=== PATIENT | female | born 1960 | race African-American/Black ===

== ENCOUNTER 2016-09-26 12:03 | Inpatient (IN) | payer OTHER ==
[~2016-09-26] VITALS: Ht 170.2 cm; Wt 63.1 kg
[2016-09-26] VITALS (9 sets, daily range): BP systolic 130–198; BP diastolic 81–135; PULSE 81–102; RESP 16–18; TEMP 97.2–98.8; O2SAT 96–100
[~2016-09-26 12:03] MED LIST: LISI-366 PO
[2016-09-26] MEDS ORDERED: SODIUM CHLORIDE 0.9% FLUSH 5 ML FLUSH IVF PRN ×2 (12:15→21:45)
[2016-09-26] MEDS ORDERED: SODIUM CHLOR 0.9% 1000 ML INJ 1,000 ML IV SCH (12:15)
[2016-09-26] MEDS ORDERED: LISINOPRIL 20 MG TAB PO ONE (12:15)
[2016-09-26 12:44] LABS: AUTOMATED NEUTROPHIL # 3.1 TH/MM3 (1.8-7.7); BASOPHIL % 0.6 % (0.0-2.0); EOSINOPHIL % 0.7 % (0.0-4.0); HEMATOCRIT 47.2 % (35.0-46.0); HEMO FLAGS DIFF FINAL; LYMPH % 29.4 % (9.0-44.0); LYMPHOCYTE # 1.5 TH/MM3 (1.0-4.8); MEAN CELL VOLUME 85.3 FL (80.0-100.0); MEAN CORPUSCULAR HGB CONC 31.7 % (32.0-36.0); MONO % 8.8 % (0.0-8.0); NEUT % 60.5 % (16.0-70.0); PLATELET COUNT 202 TH/MM3 (150-450); RED BLOOD COUNT 5.54 MIL/MM3 (4.00-5.30); RED CELL DISTRIBUTION WIDTH 14.9 % (11.6-17.2); WHITE BLOOD COUNT 5.2 TH/MM3 (4.0-11.0)
[2016-09-26 12:52] LABS: APTT (PATIENT) 30.8 SEC (24.3-30.1)
[2016-09-26 13:01] LABS: AST (GOT) 39 U/L (15-37); BICARBONATE 30.4 MEQ/L (21.0-32.0); BLOOD UREA NITROGEN 13 MG/DL (7-18); CHLORIDE 104 MEQ/L (98-107); GLOMERULAR FILTRATION RATE 66 ML/MIN (>89); POTASSIUM 4.4 MEQ/L (3.5-5.1); SODIUM (NA) 141 MEQ/L (136-145)
[2016-09-26 13:02] LABS: ANION GAP 7 MEQ/L (5-15)
[2016-09-26 13:12] LABS: ALKALINE PHOSPHATASE 87 U/L (45-117); ALT (GPT) 49 U/L (10-53); TOTAL BILIRUBIN ADULT 0.3 MG/DL (0.2-1.0)
[2016-09-26 13:13] LABS: CREATINE KINASE 62 U/L (26-192)
--- NOTE | 2016-09-26 13:21 | RADRPT ---
EXAM DATE/TIME: 09/26/2016 12:39 [facility] COMPARISON: No previous studies available for comparison. INDICATIONS : Altered mental status. Weakness. RADIATION DOSE: 56.35 CTDIvol (mGy) MEDICAL HISTORY : Hypertension. SURGICAL HISTORY : None. ENCOUNTER: Initial ACUITY: 1 day PAIN SCALE: 0/10 LOCATION: cranial TECHNIQUE: Multiple contiguous axial images were obtained of the head. Using automated exposure control and adj ustment of the mA and/or kV according to patient size, radiation dose was kept as low as reasonably a chievable to obtain optimal diagnostic quality images. FINDINGS: Moderate periventricular white matter changes are noted. There is no parenchymal hemorrhage, acute i nfarction, or mass lesion. There are no extraaxial fluid collections appreciated. Abnormal white matter extends into the brain stem. CONCLUSION: Marked periventricular white matter changes extending into the brain stem, negative for parenchymal h emorrhage or mass lesion. MRI may be helpful. Willie Alvarez MD FACR on September 26, 2016 at 13:08 Board Certified Radiologist. This report was verified electronically.
--- NOTE | 2016-09-26 13:29 | RADRPT ---
EXAM DATE/TIME: 09/26/2016 13:14 [facility] COMPARISON: CHEST SINGLE AP, July 03, 2010, 10:48. INDICATIONS : Short of breath. MEDICAL HISTORY : None. SURGICAL HISTORY : Hysterectomy. ENCOUNTER: Initial ACUITY: 1 week PAIN SCORE: 7/10 LOCATION: Bilateral chest FINDINGS: A single view of the chest demonstrates the lungs to be symmetrically aerated without evidence of mas s, infiltrate or effusion. The cardiomediastinal contours are unremarkable. Osseous structures are intact. Nipple shadow is present left base. CONCLUSION: No acute disease. Willie Alvarez MD FACR on September 26, 2016 at 13:27 Board Certified Radiologist. This report was verified electronically.
[2016-09-26 14:30] LABS: BLOOD, URINE NEG (NEG); GLUCOSE,URINE TRACE mg/dL (NEG); HYALINE CAST, URINE 2 /lpf (RARE); KETONE, URINE NEG (NEG); NITRITE,URINE NEG (NEG); PH, URINE 7.5 (5.0-8.5); RENAL EPITHELIAL CELLS <1 /hpf; TRANSITIONAL EPI CELLS, URINE 1 /hpf; URINE COLOR YELLOW (YELLW/STRAW)
[2016-09-26 14:36] LABS: COMMENT (UR) CATH-CULT NOT IND; CULTURE IF INDICATED CATH CULTURE NOT IND
[2016-09-26] MEDS ORDERED: hydrALAZINE HCL 20 MG/ML VIAL IV PUSH ONE (15:00)
[2016-09-26] MEDS ORDERED: LORazepam 2 MG/ML VIAL IV PUSH ONE (15:30)
[2016-09-26] MEDS ORDERED: GADODIAMIDE PF 287 MG/ML 5 ML VIAL (for RAD MRI) IV ONE (17:13)
--- NOTE | 2016-09-26 17:26 | RADRPT ---
EXAM DATE/TIME: 09/26/2016 16:07 [facility] COMPARISON: CT BRAIN W/O CONTRAST, September 26, 2016, 12:39. INDICATIONS : Syncope. Left sided weakness for two months. CONTRAST: 14 cc Omniscan (gadodiamide) IV MEDICAL HISTORY : Hypertension. SURGICAL HISTORY : Hysterectomy. Breast biopsy. ENCOUNTER: Initial ACUITY: 2 months PAIN SCORE: 0/10 LOCATION: Head. TECHNIQUE: Multiplanar, multisequence MRI of the brain was performed both prior to and following the administrat ion of paramagnetic contrast. FINDINGS: Extensive abnormal T2 hyperintensity is identified throughout the brainstem, cerebral peduncles, basa l ganglia and cerebral white matter. The cerebral white matter hyperintensity is confluent and extend s from the ventricular surfaces to the subcortical U fibers. A small focus of restricted diffusion is identified in the right internal capsule and bianchi radiata. A single small focus of magnetic susceptibility is identified in the left midbrain. This is character istic of hemosiderin. There is no evidence of acute hemorrhage. A well-circumscribed extra-axial mass with heterogeneous enhancement is identified in the pre-pontine cistern on the right. It extends from the level the clinoid inferiorly to the mid clivus. It measure s 2.2 x 1.4 x 2.4 cm in size. The mass covers Meckel's cave. The trigeminal ganglion appears unremark able. The fifth cranial nerve originating from the brainstem however cannot be identified. The mass i s causing moderate effacement of the hiral. The lateral ventricles are mildly to moderately distended. CSF spaces are otherwise unremarkable. CONCLUSION: Extensive T2 hyperintensity throughout the brainstem, basal ganglia and cerebral white matter charact eristic of severe chronic ischemic white matter disease. Small focus of restricted diffusion in the right internal capsule and bianchi radiata characteristic o f a small evolving infarct. 2.4 cm extra-axial mass causing moderate effacement of the hiral characteristic of a meningioma or stagecraft teacher nial nerve schwannoma. Small focal hemosiderin deposit in the left midbrain. No evidence of acute hemorrhage, intra-axial mass or significant edema. Ra Thurman MD on September 26, 2016 at 17:10 Board Certified Radiologist. This report was verified electronically.
[2016-09-26] MEDS ORDERED: ASPIRIN 81 MG CHEW TAB CHEW ONE (18:00)
[2016-09-26] MEDS ORDERED: BISACODYL 10 MG SUPP PR PRN (18:30)
[2016-09-26] MEDS ORDERED: ONDANSETRON HCL 4 MG/2 ML VIAL IVP PRN (18:30)
[2016-09-26] MEDS ORDERED: ACETAMINOPHEN 325 MG TAB PO PRN (18:30)
[2016-09-26] MEDS ORDERED: NALOXONE HCL 0.4 MG/ML AMP IV PRN (18:30)
[2016-09-26] MEDS ORDERED: SODIUM CHLORIDE 0.9% FLUSH 5 ML FLUSH FLUSH PRN (18:30)
[2016-09-26] MEDS: SODIUM CHLOR 0.9% 1000 ML INJ 1,000 ML IV SCH (19:14)
--- NOTE | 2016-09-26 20:18 | PD ---
HPI Chief Complaint: Altered Mental Status Time Seen by Provider: 12:06 Travel History International Travel<30 days: No Contact w/Intl Traveler<30days: No Traveled to known affect area: No History of Present Illness HPI Patient is a 56-year-old female who comes in due to altered mental status. Per family, she has a history of psychiatric illness. Recently her cousin convinced her to go back to [place] and she has been receiving Risperdal injections. Her roommate states that for the past few days she has not been getting out of bed. Family states she has been defecating and urinating in the bed. She is speaking, answers questions, but provides very little history. She is currently denying any symptoms, other than headache. [facility] Past Medical History Hypertension: Yes Tetanus Vaccination: Unknown Influenza Vaccination: No ?: Not Past Surgical History Gynecologic Surgery: Yes (BREAST BIOPSY) Hysterectomy: Yes Social History Alcohol Use: Yes (OCCASIONALLY) Tobacco Use: No Substance Use: No Allergies-Medications (Allergen,Severity, Reaction): Coded Allergies: No Known Allergies (Verified , 11/07/14) Reported Meds & Prescriptions Reported Meds & Active Scripts Active No Active Prescriptions or Reported Medications Review of Systems ROS Limitations: Altered Mental Status HENT: Positive: Headaches Cardiovascular: No: Chest Pain or Discomfort Respiratory: No: Shortness of Breath Gastrointestinal: No: Nausea, Vomiting Skin: No Change in Pigmentation Physical Exam Narrative GENERAL: Awake and alert, in no acute distress. SKIN: Warm and dry. HEAD: Atraumatic. Normocephalic. EYES: Pupils equal and round. No scleral icterus. Extraocular movements intact. ENT: Mucous membranes pink and moist. NECK: Trachea midline. No JVD. CARDIOVASCULAR: Regular rate and rhythm. No murmur appreciated. RESPIRATORY: No accessory muscle use. Clear to auscultation. Breath sounds equal bilaterally. GASTROINTESTINAL: Abdomen soft, non-tender, nondistended. MUSCULOSKELETAL: No obvious deformities. No clubbing. No cyanosis. No edema. NEUROLOGICAL: Awake and alert. No obvious cranial nerve deficits. Motor grossly within normal limits. Normal speech. PSYCHIATRIC: Appropriate mood and affect; insight and judgment normal. Data Data Last Documented VS Vital Signs Date Time Temp Pulse Resp B/P Pulse Ox O2 Delivery O2 Flow Rate FiO2 09/26/16 18:33 102 16 130/97 96 Room Air 09/26/16 12:16 98.8 Orders Electrocardiogram (09/26/16 12:15) Complete Blood Count With Diff (09/26/16 12:15) Comprehensive Metabolic Panel (09/26/16 12:15) Creatine Kinase (Cpk) (09/26/16 12:15) Prothrombin Time / Inr (Pt) (09/26/16 12:15) Act Partial Throm Time (Ptt) (09/26/16 12:15) Troponin I (09/26/16 12:15) Thyroid Stimulating Hormone (09/26/16 12:15) Lactic Acid Sepsis Protocol (09/26/16 12:15) Urinalysis - C+S If Indicated (09/26/16 12:15) Ua Includes Microscopic (09/26/16 12:15) Ct Brain W/O Iv Contrast(Rout) (09/26/16 12:15) Blood Glucose (09/26/16 12:15) Ecg Monitoring (09/26/16 12:15) Iv Access Insert/Monitor (09/26/16 12:15) Oximetry (09/26/16 12:15) Sodium Chloride 0.9% Flush (Ns Flush) (09/26/16 12:15) Sodium Chlor 0.9% 1000 Ml Inj (Ns 1000 M (09/26/16 12:15) Drug Screen, Random Urine (09/26/16 12:15) Lisinopril (Prinivil) (09/26/16 12:15) Chest, Single Ap (09/26/16 ) Mri Brain W&W/O Contrast (09/26/16 ) Hydralazine Inj (Apresoline Inj) (09/26/16 15:00) Lorazepam Inj (Ativan Inj) (09/26/16 15:30) Gadodiamide Pf Inj (Omniscan Pf Inj) (09/26/16 17:13) Aspirin Chew (Aspirin Chew) (09/26/16 18:00) Admit To Inpatient (09/26/16 ) Code Status (09/26/16 18:26) Vital Signs (Adult) Q4H (09/26/16 18:26) Activity Oob Ad Anabell (09/26/16 18:26) Insurance Account Representative / Telemetry .CONTINUOUS (09/26/16 18:26) Intake + Output SHUN.QSHIFT (09/26/16 18:26) ^ Notify Dr: Other (09/26/16 18:26) Diet Npo (09/26/16 Dinner) Sodium Chlor 0.9% 1000 Ml Inj (Ns 1000 M (09/26/16 18:26) Sodium Chloride 0.9% Flush (Ns Flush) (09/26/16 18:30) Sodium Chloride 0.9% Flush (Ns Flush) (09/26/16 21:00) Acetaminophen (Tylenol) (09/26/16 18:30) Ondansetron Inj (Zofran Inj) (09/26/16 18:30) Bisacodyl Supp (Dulcolax Supp) (09/26/16 18:30) Docusate Sodium (Colace) (09/26/16 20:00) Basic Metabolic Panel (Bmp) (09/27/16 06:00) Complete Blood Count With Diff (09/27/16 06:00) Creatine Kinase (Cpk) (09/26/16 18:26) Creatine Kinase (Cpk) (09/27/16 00:26) Troponin I (09/26/16 18:26) Troponin I (09/27/16 00:26) Prothrombin Time / Inr (Pt) (09/27/16 06:00) Hepatic Functional Panel (09/27/16 06:00) Pt Request For Service (09/26/16 18:26) Ot Request For Service (09/26/16 18:26) St Request For Service (09/26/16 18:26) Case Management Consult (09/26/16 18:26) Enoxaparin Inj (Lovenox Inj) (09/26/16 20:00) Naloxone Inj (Narcan Inj) (09/26/16 18:30) Inpatient Certification (09/26/16 ) Admit Order (Ed Use Only) (09/26/16 19:02) Labs Laboratory Tests Test 09/26/16 09/26/16 12:32 14:10 White Blood Count 5.2 TH/MM3 Red Blood Count 5.54 MIL/MM3 Hemoglobin 15.0 GM/DL Hematocrit 47.2 % Mean Corpuscular Volume 85.3 FL Mean Corpuscular Hemoglobin 27.0 PG Mean Corpuscular Hemoglobin 31.7 % Concent Red Cell Distribution Width 14.9 % Platelet Count 202 TH/MM3 Mean Platelet Volume 9.4 FL Neutrophils (%) (Auto) 60.5 % Lymphocytes (%) (Auto) 29.4 % Monocytes (%) (Auto) 8.8 % Eosinophils (%) (Auto) 0.7 % Basophils (%) (Auto) 0.6 % Neutrophils # (Auto) 3.1 TH/MM3 Lymphocytes # (Auto) 1.5 TH/MM3 Monocytes # (Auto) 0.5 TH/MM3 Eosinophils # (Auto) 0.0 TH/MM3 Basophils # (Auto) 0.0 TH/MM3 CBC Comment DIFF FINAL Differential Comment Prothrombin Time 11.0 SEC Prothromb Time International 1.0 RATIO Ratio Activated Partial 30.8 SEC Thromboplast Time Sodium Level 141 MEQ/L Potassium Level 4.4 MEQ/L Chloride Level 104 MEQ/L Carbon Dioxide Level 30.4 MEQ/L Anion Gap 7 MEQ/L Blood Urea Nitrogen 13 MG/DL Creatinine 1.04 MG/DL Estimat Glomerular Filtration 66 ML/MIN Rate Random Glucose 100 MG/DL Lactic Acid Level 1.0 mmol/L Calcium Level 9.1 MG/DL Total Bilirubin 0.3 MG/DL Aspartate Amino Transf 39 U/L (AST/SGOT) Alanine Aminotransferase 49 U/L (ALT/SGPT) Alkaline Phosphatase 87 U/L Total Creatine Kinase 62 U/L Troponin I LESS THAN 0.02 NG/ML Total Protein 8.0 GM/DL Albumin 3.3 GM/DL Thyroid Stimulating Hormone 1.280 uIU/ML 3rd Gen Urine Color YELLOW Urine Turbidity CLEAR Urine pH 7.5 Urine Specific [place] 1.015 Urine Protein NEG mg/dL Urine Glucose (UA) TRACE mg/dL Urine Ketones NEG mg/dL Urine Occult Blood NEG Urine Nitrite NEG Urine Bilirubin NEG Urine Urobilinogen 4.0 MG/DL Urine Leukocyte Esterase NEG Urine RBC 1 /hpf Urine WBC 1 /hpf Urine Transitional Epithelial 1 /hpf Cells Urine Renal Epithelial Cells <1 /hpf Urine Hyaline Casts 2 /lpf Microscopic Urinalysis Comment CATH-CULT NOT IND Urine Opiates Screen NEG Urine Barbiturates Screen NEG Urine Amphetamines Screen NEG Urine Benzodiazepines Screen NEG Urine Cocaine Screen POS Urine Cannabinoids Screen NEG MDM Medical Decision Making Medical Screen Exam Complete: Yes Emergency Medical Condition: Yes Interpretation(s) ECG shows normal sinus rhythm, no ST elevation or depression. Differential Diagnosis ICH versus sepsis versus like slight abnormality Narrative Course Patient is a 48-year-old female who comes in because of altered mental status. On exam she is moving all her extremities, no focal deficit. IV established, labs sent. CT head performed shows diffuse white matter disease. MRI of the brain performed shows an evolving infarct. There is also a mass in the hiral. I spoke with Dr. Kulkarni of neurology who suggests aspirin and stroke workup. I spoke with of neurosurgery says there is nothing to do unless patient becomes symptomatic from the mass. Patient given aspirin and admitted for further management. Diagnosis Primary Impression: CVA (cerebral vascular accident) Qualified Code: I63.8 - Cerebrovascular accident (CVA) due to other mechanism Admitting Information Admitting Physician Requests: Admit Scripts No Active Prescriptions or Reported Meds Dianna Ledesma MD Sep 26, 2016 20:18
--- NOTE | 2016-09-26 20:26 | HHI.HP ---
[facility] Service [place] [facility] Primary Care Physician Unknown Admission Diagnosis Stroke Diagnoses: Chief Complaint: Status post Fall Travel History International Travel<30 Days: No Contact w/Intl Traveler <30 Da: No Traveled to Known Affected Are: No History of Present Illness This is a pleasant 56 y/o Female who is in Emergency room with her relative Mrs. Yoly Pickering but she does not too much about her story, what she knows is that the patient is not able to take care of herself at home, she is all day laying in bed and only goes to the restroom and comes back, she is not able to take care of herself, poor nutritional state, she say to me that today went to the restroom and fell for that reason came to Emergency room for evaluation. as we know she has chronic back pain, Schizophrenia, Depression, Hypertension. Past Family Social History Past Medical History Hypertension Tobacco dependence Alcohol abuse Chronic back pain Depression Schizophrenia Past Surgical History [facility] Breast Biopsy Reported Medications Reported Meds & Active Scripts Active No Active Prescriptions or Reported Medications Allergies: Coded Allergies: No Known Allergies (Verified , 11/07/14) Active Ordered Medications Current Medications Medications (Trade) Dose Ordered Sig/Tracey Route Start Time Stop Time Status Last Admin (NS 1000 ml Inj) 1,000 ml @ 100 mls/hr Q10H IV 09/26/16 18:26 09/26/16 19:14 (NS Flush) 2 ml UNSCH PRN FLUSH 09/26/16 18:30 (NS Flush) 2 ml BID FLUSH 09/26/16 21:00 (Tylenol) 650 mg Q4H PRN PO 09/26/16 18:30 (Zofran Inj) 4 mg Q6H PRN IVP 09/26/16 18:30 (Dulcolax Supp) 10 mg DAILY PRN VT 09/26/16 18:30 (Colace) 100 mg Q12H PO 09/26/16 20:00 (Lovenox Inj) 40 mg Q24H SQ 09/26/16 20:00 (Narcan Inj) 0.4 mg UNSCH PRN IV 09/26/16 18:30 Family History Mother with Hypertension Social History Lives with her boyfriend and smokes one pack of cigarettes daily, drinks beers. also smoked marijuana and Cocaine until four months ago. Physical Exam Vital Signs Vital Signs Date Time Temp Pulse Resp B/P Pulse Ox O2 Delivery O2 Flow Rate FiO2 09/26/16 18:33 102 16 130/97 96 Room Air 09/26/16 15:31 86 18 194/97 96 Room Air 09/26/16 14:30 82 18 193/109 96 Room Air 09/26/16 14:00 81 18 198/125 96 Room Air 09/26/16 12:20 97 Room Air 09/26/16 12:16 98.8 88 18 192/135 96 Room Air 09/26/16 12:16 87 18 96 Room Air 09/26/16 12:12 98.8 87 18 192/135 96 Physical Exam GENERAL: Poor nutritional state, poor dental hygiene. SKIN: No rashes, ecchymoses or lesions. Cool and dry. HEAD: Atraumatic. Normocephalic. No temporal or scalp tenderness. EYES: Pupils equal round and reactive. Extraocular motions intact. No scleral icterus. No injection or drainage. ENT: Nose without bleeding, purulent drainage or septal hematoma. Throat without erythema, tonsillar hypertrophy or exudate. Uvula midline. Airway patent. NECK: Trachea midline. No JVD or lymphadenopathy. Supple, nontender, no meningeal signs. CARDIOVASCULAR: Regular rate and rhythm without murmurs, gallops, or rubs. RESPIRATORY: decreased breath sounds bilateral, no wheezing or crackles. GASTROINTESTINAL: Abdomen soft, non-tender, nondistended. No hepato-splenomegaly , or palpable masses. No guarding. MUSCULOSKELETAL: Extremities without clubbing, cyanosis, or edema. No joint tenderness, effusion, or edema noted. No calf tenderness. Negative Homans sign bilaterally. NEUROLOGICAL: Awake and alert. Cranial nerves II through XII intact. Motor and sensory grossly within normal limits. Five out of 5 muscle strength in all muscle groups. Normal speech. Laboratory Laboratory Tests Test 09/26/16 09/26/16 12:32 14:10 White Blood Count 5.2 Red Blood Count 5.54 Hemoglobin 15.0 Hematocrit 47.2 Mean Corpuscular Volume 85.3 Mean Corpuscular Hemoglobin 27.0 Mean Corpuscular Hemoglobin 31.7 Concent Red Cell Distribution Width 14.9 Platelet Count 202 Mean Platelet Volume 9.4 Neutrophils (%) (Auto) 60.5 Lymphocytes (%) (Auto) 29.4 Monocytes (%) (Auto) 8.8 Eosinophils (%) (Auto) 0.7 Basophils (%) (Auto) 0.6 Neutrophils # (Auto) 3.1 Lymphocytes # (Auto) 1.5 Monocytes # (Auto) 0.5 Eosinophils # (Auto) 0.0 Basophils # (Auto) 0.0 CBC Comment DIFF FINAL Differential Comment Prothrombin Time 11.0 Prothromb Time International 1.0 Ratio Activated Partial 30.8 Thromboplast Time Sodium Level 141 Potassium Level 4.4 Chloride Level 104 Carbon Dioxide Level 30.4 Anion Gap 7 Blood Urea Nitrogen 13 Creatinine 1.04 Estimat Glomerular Filtration 66 Rate Random Glucose 100 Lactic Acid Level 1.0 Calcium Level 9.1 Total Bilirubin 0.3 Aspartate Amino Transf 39 (AST/SGOT) Alanine Aminotransferase 49 (ALT/SGPT) Alkaline Phosphatase 87 Total Creatine Kinase 62 Troponin I LESS THAN 0.02 Total Protein 8.0 Albumin 3.3 Thyroid Stimulating Hormone 1.280 3rd Gen Urine Color YELLOW Urine Turbidity CLEAR Urine pH 7.5 Urine Specific [place] 1.015 Urine Protein NEG Urine Glucose (UA) TRACE Urine Ketones NEG Urine Occult Blood NEG Urine Nitrite NEG Urine Bilirubin NEG Urine Urobilinogen 4.0 Urine Leukocyte Esterase NEG Urine RBC 1 Urine WBC 1 Urine Transitional Epithelial 1 Cells Urine Renal Epithelial Cells <1 Urine Hyaline Casts 2 Microscopic Urinalysis Comment CATH-CULT NOT IND Result Diagram: 09/26/16 1232 09/26/16 1232 Imaging Last Impressions Head CT 09/26/16 1215 Signed Impressions: Service Date/Time: September 12:39 - CONCLUSION: Marked periventricular white matter changes extending into the brain stem, negative for parenchymal hemorrhage or mass lesion. MRI may be helpful. Willie Alvarez MD FACR Chest X-Ray 09/26/16 0000 Signed Impressions: Service Date/Time: September 13:14 - CONCLUSION: No acute disease. Willie Alvarez MD FACR Brain MRI 09/26/16 0000 Signed Impressions: Service Date/Time: September 16:07 - CONCLUSION: Extensive T2 hyperintensity throughout the brainstem, basal ganglia and cerebral white matter characteristic of severe chronic ischemic white matter disease. Small focus of restricted diffusion in the right internal capsule and bianchi radiata characteristic of a small evolving infarct. 2.4 cm extra-axial mass causing moderate effacement of the hiral characteristic of a meningioma or cranial nerve schwannoma. Small focal hemosiderin deposit in the left midbrain. No evidence of acute hemorrhage, intra-axial mass or significant edema. Ra Thurman MD Assessment and Plan Assessment and Plan 1. Status post fall probable secondary to acute Ischemic Stroke, has multiple strokes asked for The Expertise of Neurology specialist, Aspirin, Lovenox, PT,OT and ST 2. Poor Nutritional state and poor self care, asked for mechanical manager consult 3. Tobacco dependence/Alcohol abuse and marijuana abuse strongly recommended to stop behavior bronchodilator, Mucolytic and incentive spirometry 4. Chronic back pain by history 5. Depression and Schizophrenia. DVT prophylaxis with Lovenox GI prophylaxis with Protonix Code Status Full Code Discussed Condition With patient and her relative in the room Mrs. Yoly Pickering Physician Certification 2 Midnight Certification Type: Admission for Inpatient Services Order for Inpatient Services The services are ordered in accordance with Medicare regulations or non- Medicare payer requirements, as applicable. In the case of services not specified as inpatient-only, they are appropriately provided as inpatient services in accordance with the 2-midnight benchmark. Estimated LOS (days): 4 days is the estimated time the patient will need to remain in the hospital, assuming treatment plan goals are met and no additional complications. Post-Hospital Plan: Not yet determined Eddie Alfonso MD Sep 26, 2016 20:26
[2016-09-26] MEDS: ENOXAPARIN SODIUM 40 MG/0.4 ML SYRINGE SQ SCH (20:38)
[2016-09-26] MEDS: DOCUSATE SODIUM 100 MG CAP PO SCH (20:40)
[2016-09-26] MEDS: PANTOPRAZOLE SODIUM 40 MG VIAL IV PUSH SCH (20:54)
[2016-09-26] MEDS ORDERED: SODIUM CHLORIDE 0.9% FLUSH 5 ML FLUSH FLUSH SCH (21:00)
[2016-09-26 21:18] LABS: CREATINE KINASE 43 U/L (26-192)
[2016-09-26] MEDS ORDERED: DEXTROSE 50% IN WATER 50 ML VIAL(D50) IV PUSH PRN (21:45)
[2016-09-26] MEDS ORDERED: GLUCAGON 1 MG/ML VIAL IM/SQ PRN (21:45)
[2016-09-26 22:03] LABS: HDL CHOLESTEROL 69.2 MG/DL (40.0-60.0); LDL CHOLESTEROL 109 MG/DL (0-99)
[2016-09-26 22:43] LABS: HEMOGLOBIN A1a 1.1 %; HEMOGLOBIN A1b 0.8 %; HEMOGLOBIN Ao 85.3 %; HEMOGLOBIN F 1.4 %; HEMOGLOBIN LA1C 1.7 %; HEMOGLOBIN P3 3.4 %
[2016-09-27] VITALS (8 sets, daily range): BP systolic 136–157; BP diastolic 68–88; PULSE 71–86; RESP 17–20; TEMP 97.1–98.7; O2SAT 98–99
[2016-09-27 00:55] LABS: CREATINE KINASE 47 U/L (26-192)
[2016-09-27 02:11] LABS: AMPHETAMINE, URINE NEG (NEG); BARBITURATES, URINE NEG (NEG); COCAINE, URINE POS (NEG)
[2016-09-27] MEDS: SODIUM CHLOR 0.9% 1000 ML INJ 1,000 ML IV SCH ×2 (04:26→14:26)
[2016-09-27 08:33] LABS: AUTOMATED NEUTROPHIL # 3.1 TH/MM3 (1.8-7.7); BASOPHIL % 0.9 % (0.0-2.0); EOSINOPHIL % 0.8 % (0.0-4.0); HEMATOCRIT 39.6 % (35.0-46.0); HEMO FLAGS DIFF FINAL; LYMPH % 30.9 % (9.0-44.0); LYMPHOCYTE # 1.7 TH/MM3 (1.0-4.8); MEAN CELL VOLUME 85.9 FL (80.0-100.0); MEAN CORPUSCULAR HEMOGLOBIN 26.9 PG (27.0-34.0); MEAN CORPUSCULAR HGB CONC 31.3 % (32.0-36.0); MONO % 11.3 % (0.0-8.0); NEUT % 56.1 % (16.0-70.0); PLATELET COUNT 189 TH/MM3 (150-450); RED BLOOD COUNT 4.62 MIL/MM3 (4.00-5.30); RED CELL DISTRIBUTION WIDTH 15.2 % (11.6-17.2); WHITE BLOOD COUNT 5.5 TH/MM3 (4.0-11.0)
[2016-09-27 08:45] LABS: PROTHROMBIN TIME - PATIENT 11.2 SEC (9.8-11.6)
[2016-09-27 09:05] LABS: ALKALINE PHOSPHATASE 59 U/L (45-117); ALT (GPT) 41 U/L (10-53); ANION GAP 5 MEQ/L (5-15); AST (GOT) 34 U/L (15-37); BICARBONATE 27.7 MEQ/L (21.0-32.0); BLOOD UREA NITROGEN 14 MG/DL (7-18); CHLORIDE 110 MEQ/L (98-107); GLOMERULAR FILTRATION RATE 58 ML/MIN (>89); HDL CHOLESTEROL 67.9 MG/DL (40.0-60.0); INDIRECT BILIRUBIN 0.3 MG/DL (0.0-0.8); LDL CHOLESTEROL 99 MG/DL (0-99); POTASSIUM 3.7 MEQ/L (3.5-5.1); SODIUM (NA) 143 MEQ/L (136-145); TOTAL BILIRUBIN ADULT 0.4 MG/DL (0.2-1.0)
--- NOTE | 2016-09-27 09:44 | HHI.PR ---
Subjective Remarks This is a pleasant 56 y/o Female who is not able to take care of herself at home , she is all day laying in bed and only goes to the restroom and comes back, she is not able to take care of herself, poor nutritional state, she say to me that today went to the restroom and fell for that reason came to Emergency room for evaluation. as we know she has chronic back pain, Schizophrenia, Depression, Hypertension, discussed with the Patient and with nurse Mr Umana. patient improving condition. OT and PT recommending Rehab versus Home with [facility] for PT and OT. Objective Vital Signs Date Time Temp Pulse Resp B/P Pulse Ox O2 Delivery O2 Flow Rate FiO2 09/27/16 08:03 99 21 09/27/16 07:00 97.1 78 18 157/88 98 09/27/16 04:45 97.9 76 20 140/82 99 09/27/16 00:28 71 09/27/16 00:00 98.1 80 17 145/80 99 09/26/16 21:00 97.2 84 18 148/81 100 09/26/16 20:39 100 09/26/16 18:33 102 16 130/97 96 Room Air 09/26/16 15:31 86 18 194/97 96 Room Air 09/26/16 14:30 82 18 193/109 96 Room Air 09/26/16 14:00 81 18 198/125 96 Room Air 09/26/16 12:20 97 Room Air 09/26/16 12:16 98.8 88 18 192/135 96 Room Air 09/26/16 12:16 87 18 96 Room Air 09/26/16 12:12 98.8 87 18 192/135 96 I/O 09/26/16 09/26/16 09/26/16 09/27/16 09/27/16 09/27/16 07:00 15:00 23:00 07:00 15:00 23:00 Intake Total 0 ml 0 ml Output Total 0 ml Balance 0 ml 0 ml Intake Oral 0 ml 0 ml Output Urine Total 0 ml # Voids 2 # Bowel Movements 0 1 Result Diagram: 09/27/16 0736 09/27/16 0736 Imaging Last Impressions Head CT 09/26/16 1215 Signed Impressions: Service Date/Time: September 12:39 - CONCLUSION: Marked periventricular white matter changes extending into the brain stem, negative for parenchymal hemorrhage or mass lesion. MRI may be helpful. Willie Alvarez MD FACR Chest X-Ray 09/26/16 0000 Signed Impressions: Service Date/Time: September 13:14 - CONCLUSION: No acute disease. Willie Alvarez MD FACR Brain MRI 09/26/16 0000 Signed Impressions: Service Date/Time: September 16:07 - CONCLUSION: Extensive T2 hyperintensity throughout the brainstem, basal ganglia and cerebral white matter characteristic of severe chronic ischemic white matter disease. Small focus of restricted diffusion in the right internal capsule and bianchi radiata characteristic of a small evolving infarct. 2.4 cm extra-axial mass causing moderate effacement of the hiral characteristic of a meningioma or cranial nerve schwannoma. Small focal hemosiderin deposit in the left midbrain. No evidence of acute hemorrhage, intra-axial mass or significant edema. Ra Thurman MD Procedures No procedures performed. Other Results Laboratory Tests Test 09/26/16 09/26/16 09/26/16 09/26/16 12:32 14:10 20:15 23:50 Activated Partial 30.8 SEC Thromboplast Time Lactic Acid Level 1.0 mmol/L Thyroid Stimulating Hormone 1.280 uIU/ML 3rd Gen Urine Color YELLOW Urine Turbidity CLEAR Urine pH 7.5 Urine Specific [place] 1.015 Urine Protein NEG mg/dL Urine Glucose (UA) TRACE mg/dL Urine Ketones NEG mg/dL Urine Occult Blood NEG Urine Nitrite NEG Urine Bilirubin NEG Urine Urobilinogen 4.0 MG/DL Urine Leukocyte Esterase NEG Urine RBC 1 /hpf Urine WBC 1 /hpf Urine Transitional Epithelial 1 /hpf Cells Urine Renal Epithelial Cells <1 /hpf Urine Hyaline Casts 2 /lpf Microscopic Urinalysis Comment CATH-CULT NOT IND Urine Opiates Screen NEG Urine Barbiturates Screen NEG Urine Amphetamines Screen NEG Urine Benzodiazepines Screen NEG Urine Cocaine Screen POS Urine Cannabinoids Screen NEG Hemoglobin A1c 5.6 % Total Creatine Kinase 47 U/L Troponin I LESS THAN 0.02 NG/ML Test 09/27/16 07:36 White Blood Count 5.5 TH/MM3 Red Blood Count 4.62 MIL/MM3 Hemoglobin 12.4 GM/DL Hematocrit 39.6 % Mean Corpuscular Volume 85.9 FL Mean Corpuscular Hemoglobin 26.9 PG Mean Corpuscular Hemoglobin 31.3 % Concent Red Cell Distribution Width 15.2 % Platelet Count 189 TH/MM3 Mean Platelet Volume 9.9 FL Neutrophils (%) (Auto) 56.1 % Lymphocytes (%) (Auto) 30.9 % Monocytes (%) (Auto) 11.3 % Eosinophils (%) (Auto) 0.8 % Basophils (%) (Auto) 0.9 % Neutrophils # (Auto) 3.1 TH/MM3 Lymphocytes # (Auto) 1.7 TH/MM3 Monocytes # (Auto) 0.6 TH/MM3 Eosinophils # (Auto) 0.0 TH/MM3 Basophils # (Auto) 0.0 TH/MM3 CBC Comment DIFF FINAL Differential Comment Prothrombin Time 11.2 SEC Prothromb Time International 1.0 RATIO Ratio Sodium Level 143 MEQ/L Potassium Level 3.7 MEQ/L Chloride Level 110 MEQ/L Carbon Dioxide Level 27.7 MEQ/L Anion Gap 5 MEQ/L Blood Urea Nitrogen 14 MG/DL Creatinine 1.16 MG/DL Estimat Glomerular Filtration 58 ML/MIN Rate Random Glucose 104 MG/DL Calcium Level 8.7 MG/DL Total Bilirubin 0.4 MG/DL Direct Bilirubin 0.1 MG/DL Indirect Bilirubin 0.3 MG/DL Aspartate Amino Transf 34 U/L (AST/SGOT) Alanine Aminotransferase 41 U/L (ALT/SGPT) Alkaline Phosphatase 59 U/L Total Protein 6.7 GM/DL Albumin 2.7 GM/DL Triglycerides Level 98 MG/DL Cholesterol Level 186 MG/DL LDL Cholesterol 99 MG/DL HDL Cholesterol 67.9 MG/DL Cholesterol/HDL Ratio 2.73 RATIO Objective Remarks GENERAL: Poor nutritional state, poor dental hygiene. SKIN: No rashes, ecchymoses or lesions. Cool and dry. HEAD: Atraumatic. Normocephalic. No temporal or scalp tenderness. EYES: Pupils equal round and reactive. Extraocular motions intact. No scleral icterus. No injection or drainage. ENT: Nose without bleeding, purulent drainage or septal hematoma. Throat without erythema, tonsillar hypertrophy or exudate. Uvula midline. Airway patent. NECK: Trachea midline. No JVD or lymphadenopathy. Supple, nontender, no meningeal signs. CARDIOVASCULAR: Regular rate and rhythm without murmurs, gallops, or rubs. RESPIRATORY: decreased breath sounds bilateral, no wheezing or crackles. GASTROINTESTINAL: Abdomen soft, non-tender, nondistended. No hepato-splenomegaly , or palpable masses. No guarding. MUSCULOSKELETAL: Extremities without clubbing, cyanosis, or edema. No joint tenderness, effusion, or edema noted. No calf tenderness. Negative Homans sign bilaterally. NEUROLOGICAL: Awake and alert. Cranial nerves II through XII intact. Motor and sensory grossly within normal limits. Five out of 5 muscle strength in all muscle groups. Normal speech. Medications and IVs Current Medications Medications (Trade) Dose Ordered Sig/Tracey Route Start Time Stop Time Status Last Admin (NS 1000 ml Inj) 1,000 ml @ 100 mls/hr Q10H IV 09/26/16 18:26 09/27/16 04:26 (Tylenol) 650 mg Q4H PRN PO 09/26/16 18:30 (Zofran Inj) 4 mg Q6H PRN IVP 09/26/16 18:30 (Dulcolax Supp) 10 mg DAILY PRN RI 09/26/16 18:30 (Colace) 100 mg Q12H PO 09/26/16 20:00 09/26/16 20:40 (Lovenox Inj) 40 mg Q24H SQ 09/26/16 20:00 09/26/16 20:38 (Narcan Inj) 0.4 mg UNSCH PRN IV 09/26/16 18:30 (Protonix Inj) 40 mg Q24H IV PUSH 09/26/16 21:00 09/26/16 20:54 (NS Flush) 2 ml BID IVF 09/27/16 09:00 (NS Flush) 2 ml UNSCH PRN IVF 09/26/16 21:45 (D50w (Vial) Inj) 25 ml UNSCH PRN IV PUSH 09/26/16 21:45 (Glucagon Inj) 1 mg UNSCH PRN IM/SQ 09/26/16 21:45 A/P Problem List: (1) Schizophrenia ICD Code: 295.90 (2) Chronic sinusitis ICD Code: 473.9 (3) CVA (cerebral vascular accident) ICD Code: I63.9 Assessment and Plan 1. Status post fall probable secondary to acute Ischemic Stroke, has multiple strokes seen by Neurology specialist Doctor Jennifer Alex, recommended to continue, Neuro checks Aspirin, Statin started on Pravastatin, PT and OT recommended Rehab versus Home with [facility] for PT and OT. Consult neurosurgery for the Intracranial/extra-axial mass. Carotid Ultrasound, MRA Head Echocardiogram. Keppra 500 mg twice a day. EEG. 2. 2.4 CM extra-Axial Mass causing Moderate effacement of the Hiral Characteristic of Meningioma or cranial Nerve Schwannoma, asked for Neurosurgery specialist consult. 3. Poor Nutritional state and poor self care asked for Speech therapy she past her swallow test and able to start eating, Machine Zipper Trimmer and Dietitian consulted. 4. Tobacco dependence/Alcohol abuse and marijuana abuse strongly recommended to stop behavior bronchodilator, Mucolytic and incentive spirometry 5. Chronic back pain by history 6. Depression and Schizophrenia. 7. Questioned Seizure activity asked for EEG by Neurology. DVT prophylaxis with Lovenox GI prophylaxis with Protonix Code Status Full Code Discharge Planning Expected in one to two days if no Surgery performed. Problem Qualifiers (1) CVA (cerebral vascular accident): Qualified Code: I63.8 - Cerebrovascular accident (CVA) due to other mechanism Eddie Alfonso MD Sep 27, 2016 09:44
[2016-09-27] MEDS: SODIUM CHLORIDE 0.9% FLUSH 5 ML FLUSH IVF SCH ×2 (12:18→20:45)
[2016-09-27] MEDS: DOCUSATE SODIUM 100 MG CAP PO SCH ×2 (12:18→20:44)
--- NOTE | 2016-09-27 13:29 | MB ---
cc: BHAVYA WEBBER MD DATE OF CONSULTATION 09/27/2016 REASON FOR CONSULTATION Fall, suspected stroke HISTORY OF PRESENT ILLNESS Ms. Benavidez is a 56-year-old -[place] female who presented to the [facility] emergency room. The patient reported that she fell "I passed out" and as per medical records, her friend states that the patient is not able to take care of herself at home all day laying in bed and only goes to the restroom and comes back with poor nutritional status. The patient reports that when she fell, she noticed her right upper extremity shaking and she lost control of her bladder. She is not certain whether she had a seizure and she denies any similar episodes in the past. She states that she has had chronic headache, nonspecific for years, never received a diagnosis for this headache, she does have a family history of stroke in mother and grandmother and she complains of chronic low back pain. Denies any history of recent trauma to the head or back. REVIEW OF SYSTEMS A 12-point review of systems is negative except for what is stated in HPI. PAST MEDICAL HISTORY 1. Hypertension 2. Tobacco dependence 3. Alcohol abuse 4. Chronic back pain 5. Depression 6. Schizophrenia PAST SURGICAL HISTORY REMINGTON and breast biopsy. ALLERGIES No known allergies. FAMILY HISTORY Mother has hypertension and stroke grandmother stroke. SOCIAL HISTORY She states that she lives with boyfriend, smokes one pack of cigarettes a day, drinks beer, smokes marijuana and used cocaine until recently. EXAMINATION GENERAL: The patient is awake and alert. Speaks in a soft monotonous voice with little emotions, notable growth of facial hair. HEENT: Atraumatic, normocephalic. Intact hearing and intact vision. CARDIOVASCULAR: Regular rate and rhythm. RESPIRATORY: Clear to auscultation without wheezes. MUSCULOSKELETAL: Moves extremities. No clubbing, cyanosis or edema. NEUROLOGIC: Awake, alert, and oriented to time place and person. Cranial nerves II-XII are grossly intact. No abnormal external ocular motility. No facial weakness. Slow monotonous speech. Motor examination is limited by a lot of give-way due to pain and lack of cooperation, however, the right upper extremity is noted to be weaker with shoulder abduction of 5-/5 wrist extension, 5-/5 and elbow extension 4+/5. Right lower extremity examination is limited due to give-way and pain. Left upper and lower extremity are essentially normal with a lot of give-way due to pain. Sensation is intact bilateral and symmetrical. [id number] is slower on the right side, but dysdiadochokinesia. Reflexes bilateral upper extremity are brisk with finger flexion, more so to the right side, 2+ knee and 1+ ankle reflexes bilateral. Plantar's right questionable upgoing/ mute left downgoing. LABORATORY DATA White blood cells 5.5, hemoglobin 12.4, platelets 189.Sodium 143, potassium 3.7 , creatinine 1.16. DIAGNOSTICS IMAGING STUDIES - Head CT scan without contrast with marked periventricular white matter changes extending into the brain stem negative for parenchymal hemorrhage or mass lesion. - MRI of the brain with and without contrast revealed extensive T2 hyperintensities throughout the brain stem basal ganglion and cerebral white matter characteristic of severe chronic ischemic white matter disease. A small focus of restricted diffusion in the right internal capsular coronary radiata characteristic of small involving infarct. A 2.4 cm extra-axial mass causing moderate effacement of the hiral characteristic of a meningioma or cranial nerve schwannoma. Small focal hemosiderin deposits in the left mid brain. No evidence of acute hemorrhage intra-axial mass or significant edema. DIAGNOSTIC IMPRESSION 1. Acute ischemic stroke with right internal capsule restricted diffusion. 2. Extra-axial mass possible meningioma/schwannoma adjacent to the hiral. 3. Possible seizure activity 4. Chronic depression 5. Chronic backache - A review of MRI revealed a picture that may indicate CADASIL with a history of chronic headache, positive history of stroke and the appearance of the white matter on the MRI may indicate this disease disorder. PLAN 1. Neuro checks q4 hourly 2. Aspirin 81 mg daily 3. Statin 4. PT/OT recommendations are appreciated. 5. Consult neurosurgery for the intracranial/extra-axial mass 6. Carotid ultrasound 7. Telemetry 8. MRA head 9. A cardiac echo 10. Keppra 500 mg twice daily 11. Seizure prophylaxis 12. Fall precautions 13. Seizure precautions 14. EEG Thank you for this consultation. MD ELOISE Rodriguez/MILADY /12:43 PM /1:07 PM [facility]
[2016-09-27 13:51] LABS: HEMOGLOBIN A1a 1.1 %; HEMOGLOBIN A1b 0.8 %; HEMOGLOBIN Ao 85.3 %; HEMOGLOBIN F 1.4 %; HEMOGLOBIN LA1C 1.8 %; HEMOGLOBIN P3 3.4 %
--- NOTE | 2016-09-27 14:27 | RADRPT ---
EXAM DATE/TIME: 09/27/2016 13:50 [place] COMPARISON: MRI BRAIN W & W/O CONTRAST, September 26, 2016, 16:07. INDICATIONS : Right sided weakness. MEDICAL HISTORY : Hypertension. SURGICAL HISTORY : Hysterectomy. ENCOUNTER: Initial ACUITY: 1 day PAIN SCORE: 0/10 LOCATION: cranial Please note a normal MRA of the brain does not entirely exclude the possibility of a small aneurysm, nor the possibility of distal intracranial vessel disease. TECHNIQUE: 3D time of flight MRA was performed. Source images, multiplanar STS MIP, and 3D volume MIP reconstru ctions were reviewed. FINDINGS: There is excellent visualization of the major intracranial arteries out to the second-order branch ve ssels. There is no evidence for aneurysm, vessel truncation, stenosis or vascular malformation. No significant luminal irregularity is noted. CONCLUSION: No evidence of significant proximal or large vessel vasculopathy or steno-occlusive disease. No evidence of aneurysm or vascular malformation. Ra Thurman MD on September 27, 2016 at 14:22 Board Certified Radiologist. This report was verified electronically.
--- NOTE | 2016-09-27 14:51 | EKG ---
Date Performed: 09/26/2016 Time Performed: 12:36:00 PTAGE: 56 years EKG: Sinus rhythm RIGHT ATRIAL ENLARGEMENT LEFT ATRIAL ENLARGEMENT POSSIBLE LEFT VENTRICULAR HYPERTROPHY POSSIBLE SEPT AL MYOCARDIAL INFARCTION ABNORMAL ECG PREVIOUS TRACING : 07/03/2010 10.49 Compared to previous tracing, the patient is no longer hiram ycardic. DOCTOR: Xiao Taylor Interpretating Date/Time 09/27/2016 14:49:52
[2016-09-27] MEDS: PRAVASTATIN SOD 40 MG TAB PO SCH (20:44)
[2016-09-27] MEDS: ENOXAPARIN SODIUM 40 MG/0.4 ML SYRINGE SQ SCH (20:44)
[2016-09-27] MEDS: levETIRAcetam 500 MG TAB PO SCH (20:44)
[2016-09-27] MEDS: PANTOPRAZOLE SODIUM 40 MG VIAL IV PUSH SCH (20:45)
--- NOTE | 2016-09-27 22:09 | PD.CONS ---
History of Present Illness Service Neurosurgery Consult Requested By Medicine service Reason for Consult Intracranial mass Primary Care Physician Unknown Diagnoses: History of Present Illness 56-year-old female admitted through the emergency room on 09/26/16 with decreased mental status and decreasing ambulation. Has not been getting out of bed for a few days. Previous history of schizophrenia. Possible fall at home. Patient complains of mild headache. Denies vision changes. Provides minimal information in response to questions. Review of Systems Able to obtain only limited review of systems from the patient. She answers negatively to nearly all review of systems questions. Denies fevers, vision changes, change in appetite, chest pain, shortness of breath, nausea, vomiting, weight loss, joint pain, diarrhea, incontinence. Past Family Social History Allergies: Coded Allergies: No Known Allergies (Verified , 11/07/14) Past Medical History She gives a history of hypertension Medical records indicate history of schizophrenia and depression Past Surgical History Patient gives history of hysterectomy and breast biopsy Reported Medications Reported Meds & Active Scripts Active No Active Prescriptions or Reported Medications Family History Gives a history of CVA and aneurysm in both her mother and maternal grandmother Social History States she stopped smoking 2 weeks ago. Denies recent alcohol use. Denies recent illicit drug use. Previous history of cocaine use States that she lives with friends Physical Exam Vital Signs Vital Signs Date Time Temp Pulse Resp B/P Pulse Ox O2 Delivery O2 Flow Rate FiO2 09/27/16 20:00 98.1 86 17 136/68 98 09/27/16 15:32 98.7 80 20 139/71 98 09/27/16 13:18 15 09/27/16 12:04 98.2 79 20 148/82 99 09/27/16 08:03 99 21 09/27/16 07:00 97.1 78 18 157/88 98 09/27/16 04:45 97.9 76 20 140/82 99 09/27/16 00:28 71 09/27/16 00:00 98.1 80 17 145/80 99 Physical Exam GENERAL: This is a well-nourished female in no apparent distress. SKIN: No rashes, ecchymoses or lesions. Cool and dry. Probable sebaceous cyst right upper cheek. HEAD: Atraumatic. Normocephalic. No temporal or scalp tenderness. EYES: Sclerae are clear and nonicteric ENT: Oropharynx clear. Somewhat poor dentition. No facial edema or ecchymosis. Positive cerumen external auditory canals NECK: Mild neck tenderness. 45 cervical rotation without significant pain , no cervical lymphadenopathy CARDIOVASCULAR: Regular rate and rhythm without murmurs, gallops, or rubs. RESPIRATORY: Clear to auscultation. Breath sounds equal bilaterally. No wheezes , rales, or rhonchi. GASTROINTESTINAL: Abdomen soft, non-tender, nondistended. No hepato-splenomegaly , or palpable masses. No guarding. MUSCULOSKELETAL: No extremity edema. Posterior tibial pulse 2+ bilateral. No joint pain throughout the upper and lower extremities. Normal muscle tone and bulk all extremities NEUROLOGICAL: Awake and alert Oriented X person, hospital, month Speech is moderately slow but clear. Significant slowing of thought processes Answers simple questions with only a few words. Seems to give appropriate responses. Follow simple commands slowly and with mild difficulty Diminished judgment and insight Recent and remote memory are somewhat difficult to adequately assess. She seems to give reasonable responses to questions regarding her past medical history. Appears somewhat depressed. Pupils are 3 mm equal and reactive to accommodation. Extra-ocular movements, visual narvaez to confrontation, facial sensorimotor, tongue, palate, sternocleidomastoid testing, hearing to finger rub testing, and bilateral shoulder shrug are all intact. Sensation is intact to light touch in all extremities Strength normal major flexion and extension groups all extremities except for possible decreased strength in the distal right lower extremity Son's absent bilaterally No ankle clonus Plantar responses absent bilateral Fine motor movements moderately slowed in the upper extremities Laboratory Laboratory Tests Test 09/26/16 09/27/16 23:50 07:36 Total Creatine Kinase 47 Troponin I LESS THAN 0.02 White Blood Count 5.5 Red Blood Count 4.62 Hemoglobin 12.4 Hematocrit 39.6 Mean Corpuscular Volume 85.9 Mean Corpuscular Hemoglobin 26.9 Mean Corpuscular Hemoglobin 31.3 Concent Red Cell Distribution Width 15.2 Platelet Count 189 Mean Platelet Volume 9.9 Neutrophils (%) (Auto) 56.1 Lymphocytes (%) (Auto) 30.9 Monocytes (%) (Auto) 11.3 Eosinophils (%) (Auto) 0.8 Basophils (%) (Auto) 0.9 Neutrophils # (Auto) 3.1 Lymphocytes # (Auto) 1.7 Monocytes # (Auto) 0.6 Eosinophils # (Auto) 0.0 Basophils # (Auto) 0.0 CBC Comment DIFF FINAL Differential Comment Prothrombin Time 11.2 Prothromb Time International 1.0 Ratio Sodium Level 143 Potassium Level 3.7 Chloride Level 110 Carbon Dioxide Level 27.7 Anion Gap 5 Blood Urea Nitrogen 14 Creatinine 1.16 Estimat Glomerular Filtration 58 Rate Random Glucose 104 Hemoglobin A1c 5.6 Calcium Level 8.7 Total Bilirubin 0.4 Direct Bilirubin 0.1 Indirect Bilirubin 0.3 Aspartate Amino Transf 34 (AST/SGOT) Alanine Aminotransferase 41 (ALT/SGPT) Alkaline Phosphatase 59 Total Protein 6.7 Albumin 2.7 Triglycerides Level 98 Cholesterol Level 186 LDL Cholesterol 99 HDL Cholesterol 67.9 Cholesterol/HDL Ratio 2.73 Hepatitis A IgM Antibody NEGATIVE Hepatitis B Surface Antigen NEGATIVE Hepatitis B Core IgM Antibody NEGATIVE Hepatitis C Antibody REACTIVE HIV (1&2) Antibody NEGATIVE Result Diagram: 09/27/16 0736 09/27/16 0736 Imaging 09/26/16 CT scan had an 09/27/16 MRI and MRA of the brain images are all reviewed by the undersigned. Agree with findings as noted below: Head Magnetic Resonance Angiography 09/27/16 0000 Signed Impressions: Service Date/Time: Tuesday, September 27, 2016 13:50 - CONCLUSION: No evidence of significant proximal or large vessel vasculopathy or steno-occlusive disease. No evidence of aneurysm or vascular malformation. Ra Thruman MD Head CT 09/26/16 1215 Signed Impressions: Service Date/Time: September 12:39 - CONCLUSION: Marked periventricular white matter changes extending into the brain stem, negative for parenchymal hemorrhage or mass lesion. MRI may be helpful. Willie Alvarez MD FACR Chest X-Ray 09/26/16 0000 Signed Impressions: Service Date/Time: September 13:14 - CONCLUSION: No acute disease. Willie Alvarez MD FACR Brain MRI 09/26/16 0000 Signed Impressions: Service Date/Time: September 16:07 - CONCLUSION: Extensive T2 hyperintensity throughout the brainstem, basal ganglia and cerebral white matter characteristic of severe chronic ischemic white matter disease. Small focus of restricted diffusion in the right internal capsule and bianchi radiata characteristic of a small evolving infarct. 2.4 cm extra-axial mass causing moderate effacement of the hiral characteristic of a meningioma or cranial nerve schwannoma. Small focal hemosiderin deposit in the left midbrain. No evidence of acute hemorrhage, intra-axial mass or significant edema. Ra Thurman MD Assessment and Plan Assessment and Plan Impression: 1. Right upper clival soft tissue lesion. Not definitely dural based. 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 2. Right internal capsule acute CVA 3. Hypertension 4. History of schizophrenia, depression Recommendations: Findings were discussed with the patient. There does not appear to be any deficit associated with the intracranial lesion , and this is not likely related to her chronic headaches. Considering her overall health issues, it is unlikely that surgical intervention would be considered . She may be a candidate for radiosurgery in the future. At this point the lesion can be followed conservatively with follow-up imaging studies on an outpatient basis. She can return for follow-up appointment with neurosurgery in approximately 3 months. Dwight Busch MD Sep 27, 2016 22:09
[2016-09-28] VITALS (7 sets, daily range): BP systolic 121–226; BP diastolic 57–124; PULSE 64–88; RESP 17–25; TEMP 96.3–98.2; O2SAT 91–100
[2016-09-28] MEDS: SODIUM CHLOR 0.9% 1000 ML INJ 1,000 ML IV SCH (00:26)
[2016-09-28] MEDS: DOCUSATE SODIUM 100 MG CAP PO SCH ×2 (08:00→21:48)
[2016-09-28] MEDS ORDERED: POTASSIUM CHLORIDE 20 MEQ CONTROLLED RELEASE TAB PO ONE (08:00)
--- NOTE | 2016-09-28 08:14 | HHI.PR ---
Subjective Remarks This is a pleasant 56 y/o Female who is not able to take care of herself at home , she is all day laying in bed and only goes to the restroom and comes back, she is not able to take care of herself, poor nutritional state, she say to me that today went to the restroom and fell for that reason came to Emergency room for evaluation. as we know she has chronic back pain, Schizophrenia, Depression, Hypertension. OT and PT recommending Rehab versus Home with [facility] for PT and OT. 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 Objective Vital Signs Date Time Temp Pulse Resp B/P Pulse Ox O2 Delivery O2 Flow Rate FiO2 09/28/16 07:46 96.8 82 20 226/124 94 09/28/16 04:00 98.0 80 17 130/64 98 09/28/16 00:00 97.9 88 19 140/65 97 09/27/16 20:00 98.1 86 17 136/68 98 09/27/16 15:32 98.7 80 20 139/71 98 09/27/16 13:18 15 09/27/16 12:04 98.2 79 20 148/82 99 I/O 09/27/16 09/27/16 09/27/16 09/28/16 09/28/16 09/28/16 07:00 15:00 23:00 07:00 15:00 23:00 Intake Total 0 ml 120 ml 600 ml 500 ml Balance 0 ml 120 ml 600 ml 500 ml Intake Oral 0 ml 120 ml 600 ml 500 ml # Voids 2 0 0 1 # Bowel Movements 1 0 0 0 Result Diagram: 09/27/16 0736 09/27/16 0736 Imaging Last Impressions Head Magnetic Resonance Angiography 09/27/16 0000 Signed Impressions: Service Date/Time: Tuesday, September 27, 2016 13:50 - CONCLUSION: No evidence of significant proximal or large vessel vasculopathy or steno-occlusive disease. No evidence of aneurysm or vascular malformation. Ra Thurman MD Head CT 09/26/16 1215 Signed Impressions: Service Date/Time: September 12:39 - CONCLUSION: Marked periventricular white matter changes extending into the brain stem, negative for parenchymal hemorrhage or mass lesion. MRI may be helpful. Willie Alvarez MD FACR Chest X-Ray 09/26/16 0000 Signed Impressions: Service Date/Time: September 13:14 - CONCLUSION: No acute disease. Willie Alvarez MD FACR Brain MRI 09/26/16 0000 Signed Impressions: Service Date/Time: September 16:07 - CONCLUSION: Extensive T2 hyperintensity throughout the brainstem, basal ganglia and cerebral white matter characteristic of severe chronic ischemic white matter disease. Small focus of restricted diffusion in the right internal capsule and bianchi radiata characteristic of a small evolving infarct. 2.4 cm extra-axial mass causing moderate effacement of the hiral characteristic of a meningioma or cranial nerve schwannoma. Small focal hemosiderin deposit in the left midbrain. No evidence of acute hemorrhage, intra-axial mass or significant edema. Ra Thurman MD Procedures No procedures performed. Other Results Laboratory Tests Test 09/26/16 09/26/16 09/26/16 09/27/16 12:32 14:10 23:50 07:36 Activated Partial 30.8 SEC Thromboplast Time Lactic Acid Level 1.0 mmol/L Thyroid Stimulating Hormone 1.280 uIU/ML 3rd Gen Urine Color YELLOW Urine Turbidity CLEAR Urine pH 7.5 Urine Specific [place] 1.015 Urine Protein NEG mg/dL Urine Glucose (UA) TRACE mg/dL Urine Ketones NEG mg/dL Urine Occult Blood NEG Urine Nitrite NEG Urine Bilirubin NEG Urine Urobilinogen 4.0 MG/DL Urine Leukocyte Esterase NEG Urine RBC 1 /hpf Urine WBC 1 /hpf Urine Transitional Epithelial 1 /hpf Cells Urine Renal Epithelial Cells <1 /hpf Urine Hyaline Casts 2 /lpf Microscopic Urinalysis Comment CATH-CULT NOT IND Urine Opiates Screen NEG Urine Barbiturates Screen NEG Urine Amphetamines Screen NEG Urine Benzodiazepines Screen NEG Urine Cocaine Screen POS Urine Cannabinoids Screen NEG Total Creatine Kinase 47 U/L Troponin I LESS THAN 0.02 NG/ML White Blood Count 5.5 TH/MM3 Red Blood Count 4.62 MIL/MM3 Hemoglobin 12.4 GM/DL Hematocrit 39.6 % Mean Corpuscular Volume 85.9 FL Mean Corpuscular Hemoglobin 26.9 PG Mean Corpuscular Hemoglobin 31.3 % Concent Red Cell Distribution Width 15.2 % Platelet Count 189 TH/MM3 Mean Platelet Volume 9.9 FL Neutrophils (%) (Auto) 56.1 % Lymphocytes (%) (Auto) 30.9 % Monocytes (%) (Auto) 11.3 % Eosinophils (%) (Auto) 0.8 % Basophils (%) (Auto) 0.9 % Neutrophils # (Auto) 3.1 TH/MM3 Lymphocytes # (Auto) 1.7 TH/MM3 Monocytes # (Auto) 0.6 TH/MM3 Eosinophils # (Auto) 0.0 TH/MM3 Basophils # (Auto) 0.0 TH/MM3 CBC Comment DIFF FINAL Differential Comment Prothrombin Time 11.2 SEC Prothromb Time International 1.0 RATIO Ratio Sodium Level 143 MEQ/L Potassium Level 3.7 MEQ/L Chloride Level 110 MEQ/L Carbon Dioxide Level 27.7 MEQ/L Anion Gap 5 MEQ/L Blood Urea Nitrogen 14 MG/DL Creatinine 1.16 MG/DL Estimat Glomerular Filtration 58 ML/MIN Rate Random Glucose 104 MG/DL Hemoglobin A1c 5.6 % Calcium Level 8.7 MG/DL Total Bilirubin 0.4 MG/DL Direct Bilirubin 0.1 MG/DL Indirect Bilirubin 0.3 MG/DL Aspartate Amino Transf 34 U/L (AST/SGOT) Alanine Aminotransferase 41 U/L (ALT/SGPT) Alkaline Phosphatase 59 U/L Total Protein 6.7 GM/DL Albumin 2.7 GM/DL Triglycerides Level 98 MG/DL Cholesterol Level 186 MG/DL LDL Cholesterol 99 MG/DL HDL Cholesterol 67.9 MG/DL Cholesterol/HDL Ratio 2.73 RATIO Hepatitis A IgM Antibody NEGATIVE Hepatitis B Surface Antigen NEGATIVE Hepatitis B Core IgM Antibody NEGATIVE Hepatitis C Antibody REACTIVE HIV (1&2) Antibody NEGATIVE Objective Remarks GENERAL: Poor nutritional state, poor dental hygiene. SKIN: No rashes, ecchymoses or lesions. Cool and dry. HEAD: Atraumatic. Normocephalic. No temporal or scalp tenderness. EYES: Pupils equal round and reactive. Extraocular motions intact. No scleral icterus. No injection or drainage. ENT: Nose without bleeding, purulent drainage or septal hematoma. Throat without erythema, tonsillar hypertrophy or exudate. Uvula midline. Airway patent. NECK: Trachea midline. No JVD or lymphadenopathy. Supple, nontender, no meningeal signs. CARDIOVASCULAR: Regular rate and rhythm without murmurs, gallops, or rubs. RESPIRATORY: decreased breath sounds bilateral, no wheezing or crackles. GASTROINTESTINAL: Abdomen soft, non-tender, nondistended. No hepato-splenomegaly , or palpable masses. No guarding. MUSCULOSKELETAL: Extremities without clubbing, cyanosis, or edema. NEUROLOGICAL: Awake and alert. Cranial nerves II through XII intact. Motor and sensory grossly within normal limits. Five out of 5 muscle strength in all muscle groups. Normal speech. Medications and IVs Current Medications Medications (Trade) Dose Ordered Sig/Tracey Route Start Time Stop Time Status Last Admin (NS 1000 ml Inj) 1,000 ml @ 100 mls/hr Q10H IV 09/26/16 18:26 09/27/16 04:26 (Tylenol) 650 mg Q4H PRN PO 09/26/16 18:30 09/27/16 12:18 (Zofran Inj) 4 mg Q6H PRN IVP 09/26/16 18:30 (Dulcolax Supp) 10 mg DAILY PRN SC 09/26/16 18:30 (Colace) 100 mg Q12H PO 09/26/16 20:00 09/27/16 20:44 (Lovenox Inj) 40 mg Q24H SQ 09/26/16 20:00 09/27/16 20:44 (Narcan Inj) 0.4 mg UNSCH PRN IV 09/26/16 18:30 (Protonix Inj) 40 mg Q24H IV PUSH 09/26/16 21:00 09/27/16 20:45 (NS Flush) 2 ml BID IVF 09/27/16 09:00 09/27/16 20:45 (NS Flush) 2 ml UNSCH PRN IVF 09/26/16 21:45 (D50w (Vial) Inj) 25 ml UNSCH PRN IV PUSH 09/26/16 21:45 (Glucagon Inj) 1 mg UNSCH PRN IM/SQ 09/26/16 21:45 (Keppra) 500 mg Q12HR PO 09/27/16 21:00 09/27/16 20:44 (Pravachol) 40 mg HS PO 09/27/16 21:00 09/27/16 20:44 (Catapres) 0.1 mg Q6H PRN PO 09/28/16 08:00 A/P Problem List: (1) Schizophrenia ICD Code: 295.90 (2) Chronic sinusitis ICD Code: 473.9 (3) CVA (cerebral vascular accident) ICD Code: I63.9 Assessment and Plan 1. Status post fall probable secondary to acute Ischemic Stroke, as per Neurology specialist recommended to continue, Neuro checks, Aspirin, Statin started on Pravastatin, PT and OT recommended Rehab versus Home with [facility] for PT and OT. 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 on Keppra 500 mg twice a day. EEG. 2. 2.4 CM extra-Axial Mass causing Moderate effacement of the Hiral Characteristic of Meningioma or cranial Nerve Schwannoma, read #1 3. Poor Nutritional state and poor self care asked for Speech therapy she past her swallow test and able to start eating, [employer] Supervisor and Dietitian consulted. 4. Tobacco dependence/Alcohol abuse and marijuana abuse strongly recommended to stop behavior bronchodilator, Mucolytic and incentive spirometry 5. Chronic back pain by history 6. Depression and Schizophrenia. 7. Questioned Seizure activity asked for EEG by Neurology. 8. Accelerated Hypertension today Systolic blood pressure 226 mm Hg. started on Amlodipine 5 mg daily and Clonidine as needed will try to maintain blood pressure 160 to 180 mm Hg. but now is time to control blood pressure slowly. 9. Hepatitis C seropositive on tests. Quantitative studies asked. 10. Polysubstance abuse strongly recommended to stop this behavior. DVT prophylaxis with Lovenox GI prophylaxis with Protonix Following Neurology specialist recommendations for discharge. Code Status Full Code Discharge Planning Expected within the next 24 hours. Problem Qualifiers (1) CVA (cerebral vascular accident): Qualified Code: I63.8 - Cerebrovascular accident (CVA) due to other mechanism Eddie Alfonso MD Sep 28, 2016 08:14
[2016-09-28] MEDS ORDERED: amLODIPine BESYLATE 5 MG TAB PO SCH (09:00)
[2016-09-28] MEDS: SODIUM CHLORIDE 0.9% FLUSH 5 ML FLUSH IVF SCH ×2 (09:23→21:51)
[2016-09-28] MEDS: cloNIDine HCL 0.1 MG TAB PO PRN (09:23)
[2016-09-28] MEDS: levETIRAcetam 500 MG TAB PO SCH ×2 (09:23→21:48)
--- NOTE | 2016-09-28 12:05 | MG ---
cc: ION AGRAWAL MD Lab No: [id number] Date: 09/27/2016 Age: 56 Sex: F Race: HISTORY: 56-year-old with history of mental status changes, incontinence, urine drug screen apparently positive for cocaine. DESCRIPTION OF RECORD: Some 9 Hz posterior rhythm 20-50 microvolts. Fast frequency beta in the frontal channels followed by mild slowing suggestive of a drowsy state and delta bursts. Vertex waves transition to stage 1 sleep. Spindle activity is suggestive of stage 2 sleep. Good EEG variability reactivity during arousals. Mild driving with photic stimulation. Subtle left temporal region slowing and sharp transients. Single EKG showing sinus rhythm. INTERPRETATION: Minimal encephalopathy and sleep state. No active seizures. Stable EEG. Clinical correlation. Ion Agrawal MD MG/JCC /11:01 AM /11:53 AM
--- NOTE | 2016-09-28 15:32 | HHI.NSPN ---
History Chief Complaint: mild headache Interval History 56-year-old female presented to the emergency room 09/26/16 after several days of altered mental status, not mobilizing out of bed well. Positive history of schizophrenia, dementia, hypertension Review of Systems General: Negative for: fever Respiratory: Negative for: shortness of breath, cough Cardiovascular: Negative for: chest pain, palpitations Gastrointestinal: Negative for: nausea, vomitting Genitourinary: Negative for: urinary urgency Exam Results Vital Signs Date Time Temp Pulse Resp B/P Pulse Ox O2 Delivery O2 Flow Rate FiO2 09/28/16 15:21 97.5 87 20 124/57 100 09/27/16 08:03 21 09/26/16 18:33 Room Air Intake and Output 09/27/16 09/27/16 09/28/16 08:00 16:00 00:00 Intake Total 0 ml 120 ml 600 ml Balance 0 ml 120 ml 600 ml Physical Examination Respirations clear to auscultation Cardiac regular without murmur Abdomen soft nontender No significant extremity edema No joint pain with extremity range of motion Awake and relatively alert Patient thought processes moderately slow, no significant dysarthria Extraocular movements and visual narvaez to confrontation intact Facial sensorimotor intact Tongue protrudes midline Sensation intact by touch all extremities Has mild to moderate weakness left greater than right hand intrinsics Good strength bilateral lower extremities Son's absent bilateral Medical Decision Making Impression and Plan Impression: 1. Right upper clival lesion with mild to moderate compression of the right anterior lateral hiral. 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 2. Acute CVA 3. History of schizophrenia 4. Hypertension Plan: Findings were discussed at length with the patient. She is neurologically stable No obvious symptoms or deficits are related to the upper clival lesion. She is a greater with conservative treatment for this abnormality. She can follow up as an outpatient with neurosurgery in approximately 3 months after discharge. Dwight Busch MD Sep 28, 2016 15:31
[2016-09-28] MEDS: ACETAMINOPHEN/HYDROcodone 325 MG/5 MG TAB PO PRN ×2 (16:01→22:01)
[2016-09-28] MEDS: PANTOPRAZOLE SODIUM 40 MG VIAL IV PUSH SCH (21:48)
[2016-09-28] MEDS: PRAVASTATIN SOD 40 MG TAB PO SCH (21:48)
[2016-09-28] MEDS: ENOXAPARIN SODIUM 40 MG/0.4 ML SYRINGE SQ SCH (22:01)
--- NOTE | 2016-09-28 22:34 | RADRPT ---
EXAM DATE/TIME: 09/28/2016 18:25 [place] COMPARISON: No previous studies available for comparison. INDICATIONS : Right arm swelling. MEDICAL HISTORY : Hypertension. Cerebrovascular accident. Migraine. Arthritis. Incontinence. Depression. Blood transf usions. MRSA. SURGICAL HISTORY : Hysterectomy. Breast biopsy. ENCOUNTER: Initial ACUITY: 1 day PAIN SCORE: 7/10 LOCATION: Right arm. FINDINGS: There is spontaneous flow documented in the brachial, basilic, cephalic, axillary, and subclavian vei ns. The vessels are compressible and augmentation response is documented. No filling defects are se en. The flow is phasic with respiration. Direction of flow in the jugular vein is caudal. CONCLUSION: No DVT right arm. Mirza Curtis MD on September 28, 2016 at 22:31 Board Certified Radiologist. This report was verified electronically.
[2016-09-29] VITALS (9 sets, daily range): BP systolic 114–200; BP diastolic 58–114; PULSE 71–80; RESP 20; TEMP 96.2–99.1; O2SAT 96–99
[2016-09-29] MEDS: ACETAMINOPHEN/HYDROcodone 325 MG/5 MG TAB PO PRN ×3 (06:31→21:14)
[2016-09-29] MEDS: cloNIDine HCL 0.1 MG TAB PO PRN (07:58)
--- NOTE | 2016-09-29 08:26 | HHI.PR ---
Subjective Remarks This is a pleasant 56 y/o Female who is not able to take care of herself at home , she is all day laying in bed and only goes to the restroom and comes back, she is not able to take care of herself, poor nutritional state, she say to me that today went to the restroom and fell for that reason came to Emergency room for evaluation. as we know she has chronic back pain, Schizophrenia, Depression, Hypertension. OT and PT recommending Rehab versus Home with [facility] for PT and OT. 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 on Chest x ray I may see the right shoulder I do not see fracture, no DVT on Venous Ultrasound. will start Muscle relaxant. she is ready for discharge to Inpatient Rehabilitation if possible. Objective Vital Signs Date Time Temp Pulse Resp B/P Pulse Ox O2 Delivery O2 Flow Rate FiO2 09/29/16 08:13 96.4 78 20 200/114 98 09/29/16 04:00 96.2 71 20 166/78 98 09/29/16 01:23 79 09/29/16 00:00 98.0 79 20 114/58 99 09/28/16 20:00 98.2 80 20 129/81 99 09/28/16 15:21 97.5 87 20 124/57 100 09/28/16 12:04 96.3 86 20 121/67 95 I/O 09/28/16 09/28/16 09/28/16 09/29/16 09/29/16 09/29/16 07:00 15:00 23:00 07:00 15:00 23:00 Intake Total 500 ml 1200 ml 240 ml Balance 500 ml 1200 ml 240 ml Intake Oral 500 ml 1200 ml 240 ml # Voids 1 3 1 # Bowel Movements 0 0 0 Result Diagram: 09/27/16 0736 09/27/16 0736 Imaging Last Impressions Upper Extremity Ultrasound 09/28/16 0000 Signed Impressions: Service Date/Time: Wednesday, September 28, 2016 18:25 - CONCLUSION: No DVT right arm. Mirza Curtis MD Head Magnetic Resonance Angiography 09/27/16 0000 Signed Impressions: Service Date/Time: Tuesday, September 27, 2016 13:50 - CONCLUSION: No evidence of significant proximal or large vessel vasculopathy or steno-occlusive disease. No evidence of aneurysm or vascular malformation. Ra Thurman MD Head CT 09/26/16 1215 Signed Impressions: Service Date/Time: September 12:39 - CONCLUSION: Marked periventricular white matter changes extending into the brain stem, negative for parenchymal hemorrhage or mass lesion. MRI may be helpful. Willie Alvarez MD FACR Chest X-Ray 09/26/16 0000 Signed Impressions: Service Date/Time: September 13:14 - CONCLUSION: No acute disease. Willie Alvarez MD FACR Brain MRI 09/26/16 0000 Signed Impressions: Service Date/Time: September 16:07 - CONCLUSION: Extensive T2 hyperintensity throughout the brainstem, basal ganglia and cerebral white matter characteristic of severe chronic ischemic white matter disease. Small focus of restricted diffusion in the right internal capsule and bianchi radiata characteristic of a small evolving infarct. 2.4 cm extra-axial mass causing moderate effacement of the hiral characteristic of a meningioma or cranial nerve schwannoma. Small focal hemosiderin deposit in the left midbrain. No evidence of acute hemorrhage, intra-axial mass or significant edema. Ra Thurman MD Procedures No procedures performed. Other Results Laboratory Tests Test 09/26/16 09/26/16 09/26/16 09/27/16 12:32 14:10 23:50 07:36 Activated Partial 30.8 SEC Thromboplast Time Lactic Acid Level 1.0 mmol/L Thyroid Stimulating Hormone 1.280 uIU/ML 3rd Gen Urine Color YELLOW Urine Turbidity CLEAR Urine pH 7.5 Urine Specific [place] 1.015 Urine Protein NEG mg/dL Urine Glucose (UA) TRACE mg/dL Urine Ketones NEG mg/dL Urine Occult Blood NEG Urine Nitrite NEG Urine Bilirubin NEG Urine Urobilinogen 4.0 MG/DL Urine Leukocyte Esterase NEG Urine RBC 1 /hpf Urine WBC 1 /hpf Urine Transitional Epithelial 1 /hpf Cells Urine Renal Epithelial Cells <1 /hpf Urine Hyaline Casts 2 /lpf Microscopic Urinalysis Comment CATH-CULT NOT IND Urine Opiates Screen NEG Urine Barbiturates Screen NEG Urine Amphetamines Screen NEG Urine Benzodiazepines Screen NEG Urine Cocaine Screen POS Urine Cannabinoids Screen NEG Total Creatine Kinase 47 U/L Troponin I LESS THAN 0.02 NG/ML White Blood Count 5.5 TH/MM3 Red Blood Count 4.62 MIL/MM3 Hemoglobin 12.4 GM/DL Hematocrit 39.6 % Mean Corpuscular Volume 85.9 FL Mean Corpuscular Hemoglobin 26.9 PG Mean Corpuscular Hemoglobin 31.3 % Concent Red Cell Distribution Width 15.2 % Platelet Count 189 TH/MM3 Mean Platelet Volume 9.9 FL Neutrophils (%) (Auto) 56.1 % Lymphocytes (%) (Auto) 30.9 % Monocytes (%) (Auto) 11.3 % Eosinophils (%) (Auto) 0.8 % Basophils (%) (Auto) 0.9 % Neutrophils # (Auto) 3.1 TH/MM3 Lymphocytes # (Auto) 1.7 TH/MM3 Monocytes # (Auto) 0.6 TH/MM3 Eosinophils # (Auto) 0.0 TH/MM3 Basophils # (Auto) 0.0 TH/MM3 CBC Comment DIFF FINAL Differential Comment Prothrombin Time 11.2 SEC Prothromb Time International 1.0 RATIO Ratio Sodium Level 143 MEQ/L Potassium Level 3.7 MEQ/L Chloride Level 110 MEQ/L Carbon Dioxide Level 27.7 MEQ/L Anion Gap 5 MEQ/L Blood Urea Nitrogen 14 MG/DL Creatinine 1.16 MG/DL Estimat Glomerular Filtration 58 ML/MIN Rate Random Glucose 104 MG/DL Hemoglobin A1c 5.6 % Calcium Level 8.7 MG/DL Total Bilirubin 0.4 MG/DL Direct Bilirubin 0.1 MG/DL Indirect Bilirubin 0.3 MG/DL Aspartate Amino Transf 34 U/L (AST/SGOT) Alanine Aminotransferase 41 U/L (ALT/SGPT) Alkaline Phosphatase 59 U/L Total Protein 6.7 GM/DL Albumin 2.7 GM/DL Triglycerides Level 98 MG/DL Cholesterol Level 186 MG/DL LDL Cholesterol 99 MG/DL HDL Cholesterol 67.9 MG/DL Cholesterol/HDL Ratio 2.73 RATIO Hepatitis A IgM Antibody NEGATIVE Hepatitis B Surface Antigen NEGATIVE Hepatitis B Core IgM Antibody NEGATIVE Hepatitis C Antibody REACTIVE HIV (1&2) Antibody NEGATIVE Objective Remarks GENERAL: Poor nutritional state, poor dental hygiene. SKIN: No rashes, ecchymoses or lesions. Cool and dry. HEAD: Atraumatic. Normocephalic. No temporal or scalp tenderness. EYES: Pupils equal round and reactive. Extraocular motions intact. No scleral icterus. No injection or drainage. ENT: Nose without bleeding, purulent drainage or septal hematoma. Throat without erythema, tonsillar hypertrophy or exudate. Uvula midline. Airway patent. NECK: Trachea midline. No JVD or lymphadenopathy. Supple, nontender, no meningeal signs. CARDIOVASCULAR: Regular rate and rhythm without murmurs, gallops, or rubs. RESPIRATORY: decreased breath sounds bilateral, no wheezing or crackles. GASTROINTESTINAL: Abdomen soft, non-tender, nondistended. No hepato-splenomegaly , or palpable masses. No guarding. MUSCULOSKELETAL: Extremities without clubbing, cyanosis, or edema. NEUROLOGICAL: Awake and alert. Cranial nerves II through XII intact. No focal Deficits. Medications and IVs Current Medications Medications (Trade) Dose Ordered Sig/Tracey Route Start Time Stop Time Status Last Admin (Tylenol) 650 mg Q4H PRN PO 09/26/16 18:30 09/27/16 12:18 (Zofran Inj) 4 mg Q6H PRN IVP 09/26/16 18:30 (Dulcolax Supp) 10 mg DAILY PRN OK 09/26/16 18:30 (Colace) 100 mg Q12H PO 09/26/16 20:00 09/28/16 21:48 (Lovenox Inj) 40 mg Q24H SQ 09/26/16 20:00 09/28/16 22:01 (Narcan Inj) 0.4 mg UNSCH PRN IV 09/26/16 18:30 (Protonix Inj) 40 mg Q24H IV PUSH 09/26/16 21:00 09/28/16 21:48 (NS Flush) 2 ml BID IVF 09/27/16 09:00 09/28/16 21:51 (NS Flush) 2 ml UNSCH PRN IVF 09/26/16 21:45 (D50w (Vial) Inj) 25 ml UNSCH PRN IV PUSH 09/26/16 21:45 (Glucagon Inj) 1 mg UNSCH PRN IM/SQ 09/26/16 21:45 (Keppra) 500 mg Q12HR PO 09/27/16 21:00 09/28/16 21:48 (Pravachol) 40 mg HS PO 09/27/16 21:00 09/28/16 21:48 (Catapres) 0.1 mg Q6H PRN PO 09/28/16 08:00 09/29/16 07:58 (Norvasc) 5 mg DAILY PO 09/28/16 09:00 09/28/16 09:23 ([place] 5-325 Mg) 1 tab Q6H PRN PO 09/28/16 15:15 09/29/16 06:31 A/P Problem List: (1) Schizophrenia ICD Code: 295.90 (2) Chronic sinusitis ICD Code: 473.9 (3) CVA (cerebral vascular accident) ICD Code: I63.9 Assessment and Plan 1. Status post fall probable secondary to acute Ischemic Stroke, as per Neurology specialist recommended to continue, Neuro checks, Aspirin, Statin started on Pravastatin, PT and OT recommended Rehab versus Home with [facility] for PT and OT. 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 on Keppra 500 mg twice a day. EEG. Minimal Encephalopathy and sleep states, no active Seizures. 2. 2.4 CM extra-Axial Mass causing Moderate effacement of the Hiral Characteristic of Meningioma or cranial Nerve Schwannoma, read #1 3. Poor Nutritional state and poor self care asked for Speech therapy she past her swallow test and able to start eating, Marketing Summer Intern and Dietitian consulted. 4. Tobacco dependence/Alcohol abuse and marijuana abuse strongly recommended to stop behavior bronchodilator, Mucolytic and incentive spirometry 5. Chronic back pain by history 6. Depression and Schizophrenia. 7. Accelerated Hypertension increased Amlodipine to 10 mg daily and following. 9. Hepatitis C seropositive on tests. Quantitative studies asked. 10. Polysubstance abuse strongly recommended to stop this behavior. DVT prophylaxis with Lovenox GI prophylaxis with Protonix Following Neurology specialist recommendations for discharge. Code Status Full Code Discharge Planning Expected for tomorrow. Problem Qualifiers (1) CVA (cerebral vascular accident): Qualified Code: I63.8 - Cerebrovascular accident (CVA) due to other mechanism Eddie Alfonso MD Sep 29, 2016 08:26 Qualified Code: I63.8 - Cerebrovascular accident (CVA) due to other mechanism Eddie Alfonso MD Sep 29, 2016 08:26 Eddie Alfonso MD Sep 29, 2016 08:26
[2016-09-29] MEDS: SODIUM CHLORIDE 0.9% FLUSH 5 ML FLUSH IVF SCH ×2 (09:43→21:14)
[2016-09-29] MEDS: levETIRAcetam 500 MG TAB PO SCH ×2 (09:43→21:13)
[2016-09-29] MEDS: DOCUSATE SODIUM 100 MG CAP PO SCH ×2 (09:43→21:13)
--- NOTE | 2016-09-29 13:23 | HHI.PR ---
Review/Management Diagnosis LABORATORY DATA White blood cells 5.5, hemoglobin 12.4, platelets 189.Sodium 143, potassium 3.7 , creatinine 1.16. - Acute ischemic stroke with right internal capsule restricted diffusion. - Extra-axial mass possible meningioma/schwannoma adjacent to the hiral. - Chronic depression - Chronic backache - A review of MRI revealed a picture that may indicate CADASIL with a history of chronic headache, positive history of stroke and the appearance of the white matter on the MRI may indicate this disease disorder - The extra-axial mass is not to be operated upon at this time as per neurosurgery Plan 1. Neuro checks q4 hourly 2. Aspirin 81 mg daily 3. Statin 4. PT/OT recommendations are appreciated. 5. Fall precautions Diagnosis/Plan: Subjective Subjective Comments No acute events reported Mild improvement of symptoms EEG with no ictal activity, mild encephalopathy No new symptoms Active Medications Current Medications Medications (Trade) Dose Ordered Sig/Tracey Route Start Time Stop Time Status Last Admin (Tylenol) 650 mg Q4H PRN PO 09/26/16 18:30 09/27/16 12:18 (Zofran Inj) 4 mg Q6H PRN IVP 09/26/16 18:30 (Dulcolax Supp) 10 mg DAILY PRN [place] 09/26/16 18:30 (Colace) 100 mg Q12H PO 09/26/16 20:00 09/29/16 09:43 (Lovenox Inj) 40 mg Q24H SQ 09/26/16 20:00 09/28/16 22:01 (Narcan Inj) 0.4 mg UNSCH PRN IV 09/26/16 18:30 (Protonix Inj) 40 mg Q24H IV PUSH 09/26/16 21:00 09/28/16 21:48 (NS Flush) 2 ml BID IVF 09/27/16 09:00 09/29/16 09:43 (NS Flush) 2 ml UNSCH PRN IVF 09/26/16 21:45 (D50w (Vial) Inj) 25 ml UNSCH PRN IV PUSH 09/26/16 21:45 (Glucagon Inj) 1 mg UNSCH PRN IM/SQ 09/26/16 21:45 (Keppra) 500 mg Q12HR PO 09/27/16 21:00 09/29/16 09:43 (Pravachol) 40 mg HS PO 09/27/16 21:00 09/28/16 21:48 (Catapres) 0.1 mg Q6H PRN PO 09/28/16 08:00 09/29/16 07:58 ([place] 5-325 Mg) 1 tab Q6H PRN PO 09/28/16 15:15 09/29/16 06:31 (Norvasc) 10 mg DAILY PO 09/29/16 09:00 09/29/16 09:45 Allergies Allergies Coded Allergies No Known Allergies (Verified11/07/14) Exam I&O / VS 09/28/16 09/28/16 09/29/16 15:00 23:00 07:00 Intake Total 1200 ml 240 ml Balance 1200 ml 240 ml Intake Oral 1200 ml 240 ml # Voids 3 1 # Bowel Movements 0 0 Vital Signs Date Time Temp Pulse Resp B/P Pulse Ox O2 Delivery O2 Flow Rate FiO2 09/29/16 12:25 97.9 80 20 127/73 96 09/29/16 09:48 124/76 Automatic Cuff 09/29/16 08:13 96.4 78 20 200/114 98 09/29/16 04:00 96.2 71 20 166/78 98 09/29/16 01:23 79 09/29/16 00:00 98.0 79 20 114/58 99 09/28/16 20:00 98.2 80 20 129/81 99 09/28/16 15:21 97.5 87 20 124/57 100 Exam Comments GENERAL: The patient is awake and alert. Speaks in a soft monotonous voice, notable growth of facial hair. HEENT: Atraumatic, normocephalic. Intact hearing and intact vision. CARDIOVASCULAR: Regular rate and rhythm. RESPIRATORY: Clear to auscultation without wheezes. MUSCULOSKELETAL: Moves extremities. No clubbing, cyanosis or edema. NEUROLOGIC: Awake, alert, and oriented to time place and person. Cranial nerves II-XII are grossly intact. No abnormal external ocular motility. No facial weakness. Slow monotonous speech. Motor examination is limited by a lot of give-way due to pain and lack of cooperation, however, the right upper extremity is noted to be weaker with shoulder abduction of 5-/5 wrist extension, 5-/5 and elbow extension 4+/5. Right lower extremity examination is limited due to give-way and pain. Left upper and lower extremity are essentially normal with a lot of give-way due to pain. Sensation is intact bilateral and symmetrical. Aiixrg-ag-djoo is slower on the right side, but dysdiadochokinesia. Reflexes bilateral upper extremity are brisk with finger flexion, more so to the right side, 2+ knee and 1+ ankle reflexes bilateral. Plantar's right questionable upgoing/ mute left downgoing. Objective Radiology Results Last 72 hours Impressions Upper Extremity Ultrasound 09/28/16 0000 Signed Impressions: Service Date/Time: Wednesday, September 28, 2016 18:25 - CONCLUSION: No DVT right arm. Mirza Curtis MD Ossi,Jennifer العلي MD Sep 29, 2016 13:23
[2016-09-29] MEDS: PANTOPRAZOLE SODIUM 40 MG VIAL IV PUSH SCH (21:13)
[2016-09-29] MEDS: ENOXAPARIN SODIUM 40 MG/0.4 ML SYRINGE SQ SCH (21:13)
[2016-09-29] MEDS: PRAVASTATIN SOD 40 MG TAB PO SCH (21:13)
[2016-09-30] VITALS (8 sets, daily range): BP systolic 112–175; BP diastolic 72–106; PULSE 70–86; RESP 18–20; TEMP 95.9–98.3; O2SAT 97–100
--- NOTE | 2016-09-30 08:29 | HHI.PR ---
Subjective Remarks This is a pleasant 56 y/o Female who is not able to take care of herself at home , she is all day laying in bed and only goes to the restroom and comes back, she is not able to take care of herself, poor nutritional state, she say to me that today went to the restroom and fell for that reason came to Emergency room for evaluation. as we know she has chronic back pain, Schizophrenia, Depression, Hypertension. 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 on Chest x ray I may see the right shoulder I do not see fracture, no DVT on Venous Ultrasound. will start Muscle relaxant. she is ready for discharge to Inpatient Rehabilitation if possible. 09/30 Discussed with Physical Therapy will review today and give recommendations , she has no Insurance will be difficult to get Rehab, so was discussed with her Niece Es Wheat to the phone number [phone] the patient and her Fiance Mr. Kole Ramírez in the room, she wants her Aunt discharged before Friday due to that she has appointment for her Medicaid Insurance was discussed with [employer]. no Nausea, vomit or diarrhea. Objective Vital Signs Date Time Temp Pulse Resp B/P Pulse Ox O2 Delivery O2 Flow Rate FiO2 09/30/16 08:00 97.8 78 18 175/106 100 09/30/16 04:00 96.5 71 20 166/86 97 09/30/16 00:00 95.9 70 20 112/76 97 09/29/16 20:07 98.4 75 20 140/81 97 09/29/16 20:00 73 09/29/16 16:48 99.1 80 20 128/65 98 09/29/16 12:25 97.9 80 20 127/73 96 09/29/16 09:48 124/76 Automatic Cuff I/O 09/29/16 09/29/16 09/29/16 09/30/16 09/30/16 09/30/16 07:00 15:00 23:00 07:00 15:00 23:00 Intake Total 240 ml 1080 ml Balance 240 ml 1080 ml Intake Oral 240 ml 1080 ml # Voids 1 5 1 # Bowel Movements 0 0 0 Result Diagram: 09/27/16 0736 09/27/16 0736 Imaging Last Impressions Upper Extremity Ultrasound 09/28/16 0000 Signed Impressions: Service Date/Time: Wednesday, September 28, 2016 18:25 - CONCLUSION: No DVT right arm. Mirza Curtis MD Head Magnetic Resonance Angiography 09/27/16 0000 Signed Impressions: Service Date/Time: Tuesday, September 27, 2016 13:50 - CONCLUSION: No evidence of significant proximal or large vessel vasculopathy or steno-occlusive disease. No evidence of aneurysm or vascular malformation. Ra Thurman MD Head CT 09/26/16 1215 Signed Impressions: Service Date/Time: September 12:39 - CONCLUSION: Marked periventricular white matter changes extending into the brain stem, negative for parenchymal hemorrhage or mass lesion. MRI may be helpful. Willie Alvarez MD FACR Chest X-Ray 09/26/16 0000 Signed Impressions: Service Date/Time: September 13:14 - CONCLUSION: No acute disease. Willie Alvarez MD FACR Brain MRI 09/26/16 0000 Signed Impressions: Service Date/Time: September 16:07 - CONCLUSION: Extensive T2 hyperintensity throughout the brainstem, basal ganglia and cerebral white matter characteristic of severe chronic ischemic white matter disease. Small focus of restricted diffusion in the right internal capsule and bianchi radiata characteristic of a small evolving infarct. 2.4 cm extra-axial mass causing moderate effacement of the hiral characteristic of a meningioma or cranial nerve schwannoma. Small focal hemosiderin deposit in the left midbrain. No evidence of acute hemorrhage, intra-axial mass or significant edema. Ra Thurman MD Procedures No procedures performed. Other Results Laboratory Tests Test 09/26/16 09/26/16 09/26/16 09/27/16 12:32 14:10 23:50 07:36 Activated Partial 30.8 SEC Thromboplast Time Lactic Acid Level 1.0 mmol/L Thyroid Stimulating Hormone 1.280 uIU/ML 3rd Gen Urine Color YELLOW Urine Turbidity CLEAR Urine pH 7.5 Urine Specific [place] 1.015 Urine Protein NEG mg/dL Urine Glucose (UA) TRACE mg/dL Urine Ketones NEG mg/dL Urine Occult Blood NEG Urine Nitrite NEG Urine Bilirubin NEG Urine Urobilinogen 4.0 MG/DL Urine Leukocyte Esterase NEG Urine RBC 1 /hpf Urine WBC 1 /hpf Urine Transitional Epithelial 1 /hpf Cells Urine Renal Epithelial Cells <1 /hpf Urine Hyaline Casts 2 /lpf Microscopic Urinalysis Comment CATH-CULT NOT IND Urine Opiates Screen NEG Urine Barbiturates Screen NEG Urine Amphetamines Screen NEG Urine Benzodiazepines Screen NEG Urine Cocaine Screen POS Urine Cannabinoids Screen NEG Total Creatine Kinase 47 U/L Troponin I LESS THAN 0.02 NG/ML White Blood Count 5.5 TH/MM3 Red Blood Count 4.62 MIL/MM3 Hemoglobin 12.4 GM/DL Hematocrit 39.6 % Mean Corpuscular Volume 85.9 FL Mean Corpuscular Hemoglobin 26.9 PG Mean Corpuscular Hemoglobin 31.3 % Concent Red Cell Distribution Width 15.2 % Platelet Count 189 TH/MM3 Mean Platelet Volume 9.9 FL Neutrophils (%) (Auto) 56.1 % Lymphocytes (%) (Auto) 30.9 % Monocytes (%) (Auto) 11.3 % Eosinophils (%) (Auto) 0.8 % Basophils (%) (Auto) 0.9 % Neutrophils # (Auto) 3.1 TH/MM3 Lymphocytes # (Auto) 1.7 TH/MM3 Monocytes # (Auto) 0.6 TH/MM3 Eosinophils # (Auto) 0.0 TH/MM3 Basophils # (Auto) 0.0 TH/MM3 CBC Comment DIFF FINAL Differential Comment Prothrombin Time 11.2 SEC Prothromb Time International 1.0 RATIO Ratio Sodium Level 143 MEQ/L Potassium Level 3.7 MEQ/L Chloride Level 110 MEQ/L Carbon Dioxide Level 27.7 MEQ/L Anion Gap 5 MEQ/L Blood Urea Nitrogen 14 MG/DL Creatinine 1.16 MG/DL Estimat Glomerular Filtration 58 ML/MIN Rate Random Glucose 104 MG/DL Hemoglobin A1c 5.6 % Calcium Level 8.7 MG/DL Total Bilirubin 0.4 MG/DL Direct Bilirubin 0.1 MG/DL Indirect Bilirubin 0.3 MG/DL Aspartate Amino Transf 34 U/L (AST/SGOT) Alanine Aminotransferase 41 U/L (ALT/SGPT) Alkaline Phosphatase 59 U/L Total Protein 6.7 GM/DL Albumin 2.7 GM/DL Triglycerides Level 98 MG/DL Cholesterol Level 186 MG/DL LDL Cholesterol 99 MG/DL HDL Cholesterol 67.9 MG/DL Cholesterol/HDL Ratio 2.73 RATIO Hepatitis A IgM Antibody NEGATIVE Hepatitis B Surface Antigen NEGATIVE Hepatitis B Core IgM Antibody NEGATIVE Hepatitis C Antibody REACTIVE HIV (1&2) Antibody NEGATIVE Objective Remarks GENERAL: Poor nutritional state, poor dental hygiene. SKIN: No rashes, ecchymoses or lesions. Cool and dry. HEAD: Atraumatic. Normocephalic. No temporal or scalp tenderness. EYES: Pupils equal round and reactive. Extraocular motions intact. No scleral icterus. No injection or drainage. ENT: Nose without bleeding, purulent drainage or septal hematoma. Throat without erythema, tonsillar hypertrophy or exudate. Uvula midline. Airway patent. NECK: Trachea midline. No JVD or lymphadenopathy. Supple, nontender, no meningeal signs. CARDIOVASCULAR: Regular rate and rhythm without murmurs, gallops, or rubs. RESPIRATORY: decreased breath sounds bilateral, no wheezing or crackles. GASTROINTESTINAL: Abdomen soft, non-tender, nondistended. No hepato-splenomegaly , or palpable masses. No guarding. MUSCULOSKELETAL: Extremities without clubbing, cyanosis, or edema. NEUROLOGICAL: Awake and alert. Cranial nerves II through XII intact. No focal Deficits. Medications and IVs Current Medications Medications (Trade) Dose Ordered Sig/Tracey Route Start Time Stop Time Status Last Admin (Tylenol) 650 mg Q4H PRN PO 09/26/16 18:30 09/27/16 12:18 (Zofran Inj) 4 mg Q6H PRN IVP 09/26/16 18:30 (Dulcolax Supp) 10 mg DAILY PRN [place] 09/26/16 18:30 (Colace) 100 mg Q12H PO 09/26/16 20:00 09/29/16 21:13 (Lovenox Inj) 40 mg Q24H SQ 09/26/16 20:00 09/29/16 21:13 (Narcan Inj) 0.4 mg UNSCH PRN IV 09/26/16 18:30 (Protonix Inj) 40 mg Q24H IV PUSH 09/26/16 21:00 09/29/16 21:13 (NS Flush) 2 ml BID IVF 09/27/16 09:00 09/29/16 21:14 (NS Flush) 2 ml UNSCH PRN IVF 09/26/16 21:45 (D50w (Vial) Inj) 25 ml UNSCH PRN IV PUSH 09/26/16 21:45 (Glucagon Inj) 1 mg UNSCH PRN IM/SQ 09/26/16 21:45 (Keppra) 500 mg Q12HR PO 09/27/16 21:00 09/29/16 21:13 (Pravachol) 40 mg HS PO 09/27/16 21:00 09/29/16 21:13 (Catapres) 0.1 mg Q6H PRN PO 09/28/16 08:00 09/29/16 07:58 ([place] 5-325 Mg) 1 tab Q6H PRN PO 09/28/16 15:15 09/29/16 21:14 (Norvasc) 10 mg DAILY PO 09/29/16 09:00 09/29/16 09:45 A/P Problem List: (1) Schizophrenia ICD Code: 295.90 (2) Chronic sinusitis ICD Code: 473.9 (3) CVA (cerebral vascular accident) ICD Code: I63.9 Assessment and Plan 1. Status post fall probable secondary to acute Ischemic Stroke, as per Neurology specialist recommended to continue, Neuro checks, Aspirin, Statin started on Pravastatin, PT and OT recommended Rehab versus Home with [facility] for PT and OT. 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 on Keppra 500 mg twice a day. EEG. Minimal Encephalopathy and sleep states, no active Seizures. 2. 2.4 CM extra-Axial Mass causing Moderate effacement of the Hiral Characteristic of Meningioma or cranial Nerve Schwannoma, read #1 3. Poor Nutritional state and poor self care asked for Speech therapy she past her swallow test and able to start eating, [employer] and Dietitian consulted. 4. Tobacco dependence/Alcohol abuse and marijuana abuse strongly recommended to stop behavior bronchodilator, Mucolytic and incentive spirometry, 5. Chronic back pain by history 6. Depression and Schizophrenia. 7. Accelerated Hypertension Improving will continue present care and follow during the day. 9. Hepatitis C seropositive on tests. Quantitative studies asked. 10. Polysubstance abuse strongly recommended to stop this behavior. Cocaine positive on her Drug Screen. DVT prophylaxis with Lovenox GI prophylaxis with Protonix Following Neurology specialist recommendations for discharge. Code Status Full Code Discharge Planning Expected for tomorrow. Problem Qualifiers (1) CVA (cerebral vascular accident): Qualified Code: I63.8 - Cerebrovascular accident (CVA) due to other mechanism Eddie Alfonso MD Sep 30, 2016 08:29
[2016-09-30] MEDS: DOCUSATE SODIUM 100 MG CAP PO SCH ×2 (08:47→23:26)
[2016-09-30] MEDS: levETIRAcetam 500 MG TAB PO SCH ×2 (08:47→23:25)
[2016-09-30] MEDS: ACETAMINOPHEN/HYDROcodone 325 MG/5 MG TAB PO PRN ×3 (09:12→23:25)
[2016-09-30] MEDS ORDERED: PILL SPLITTER OTHER PRN (12:30)
[2016-09-30] MEDS ORDERED: CYCLOBENZAPRINE HCL 10 MG TAB PO PRN (12:30)
[2016-09-30] MEDS: PRAVASTATIN SOD 40 MG TAB PO SCH (23:25)
[2016-09-30] MEDS: PANTOPRAZOLE SODIUM 40 MG VIAL IV PUSH SCH (23:25)
[2016-09-30] MEDS: ENOXAPARIN SODIUM 40 MG/0.4 ML SYRINGE SQ SCH (23:26)
[2016-10-01 00:06] VITALS: BP 143/84; PULSE 77; RESP 16; TEMP 97.2; O2SAT 99
[2016-10-01 04:51] VITALS: BP 152/83; PULSE 74; RESP 18; TEMP 97.6; O2SAT 100
[2016-10-01] MEDS: ACETAMINOPHEN/HYDROcodone 325 MG/5 MG TAB PO PRN (06:09)
[2016-10-01] MEDS: SODIUM CHLORIDE 0.9% FLUSH 5 ML FLUSH IVF SCH (06:10)
[2016-10-01 08:00] VITALS: BP 171/106; PULSE 74; RESP 20; TEMP 96.1; O2SAT 100
--- NOTE | 2016-10-01 08:06 | HHI.PR ---
Subjective Remarks This is a pleasant 56 y/o Female who is not able to take care of herself at home , she is all day laying in bed and only goes to the restroom and comes back, she is not able to take care of herself, poor nutritional state, she say to me that today went to the restroom and fell for that reason came to Emergency room for evaluation. as we know she has chronic back pain, Schizophrenia, Depression, Hypertension. 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 on Chest x ray I may see the right shoulder I do not see fracture, no DVT on Venous Ultrasound. will start Muscle relaxant. she is ready for discharge to Inpatient Rehabilitation if possible. 09/30 Discussed with Physical Therapy will review today and give recommendations , she has no Insurance will be difficult to get Rehab, so was discussed with her Niece Es Wheat to the phone number [phone] the patient and her Fiance Mr. Kole Ramírez in the room, she wants her Aunt discharged before Friday due to that she has appointment for her Medicaid Insurance was discussed with Communication Center Operator. no Nausea, vomit or diarrhea. 10/01 Patient ready for discharge she will go home with [facility] for Skilled nurse and will get follow up with Neurology specialist, given Physical Therapy as outpatient no complaint no Nausea, vomit or Diarrhea Objective Vital Signs Date Time Temp Pulse Resp B/P Pulse Ox O2 Delivery O2 Flow Rate FiO2 10/01/16 04:51 97.6 74 18 152/83 100 10/01/16 00:06 97.2 77 16 143/84 99 09/30/16 20:10 97.7 75 18 131/72 97 09/30/16 18:00 82 09/30/16 16:00 97.2 76 18 132/73 99 09/30/16 12:00 98.3 86 19 137/81 99 I/O 09/30/16 09/30/16 09/30/16 10/01/16 10/01/16 10/01/16 07:00 15:00 23:00 07:00 15:00 23:00 Intake Total 660 ml Balance 660 ml Intake Oral 660 ml # Voids 1 2 3 # Bowel Movements 0 0 0 Result Diagram: 09/27/16 0736 09/27/16 0736 Imaging Last Impressions Upper Extremity Ultrasound 09/28/16 0000 Signed Impressions: Service Date/Time: Wednesday, September 28, 2016 18:25 - CONCLUSION: No DVT right arm. Mirza Curtis MD Head Magnetic Resonance Angiography 09/27/16 0000 Signed Impressions: Service Date/Time: Tuesday, September 27, 2016 13:50 - CONCLUSION: No evidence of significant proximal or large vessel vasculopathy or steno-occlusive disease. No evidence of aneurysm or vascular malformation. Ra Thurman MD Head CT 09/26/16 1215 Signed Impressions: Service Date/Time: September 12:39 - CONCLUSION: Marked periventricular white matter changes extending into the brain stem, negative for parenchymal hemorrhage or mass lesion. MRI may be helpful. Willie Alvarez MD FACR Chest X-Ray 09/26/16 0000 Signed Impressions: Service Date/Time: September 13:14 - CONCLUSION: No acute disease. Willie Alvarez MD FACR Brain MRI 09/26/16 0000 Signed Impressions: Service Date/Time: September 16:07 - CONCLUSION: Extensive T2 hyperintensity throughout the brainstem, basal ganglia and cerebral white matter characteristic of severe chronic ischemic white matter disease. Small focus of restricted diffusion in the right internal capsule and bianchi radiata characteristic of a small evolving infarct. 2.4 cm extra-axial mass causing moderate effacement of the hiral characteristic of a meningioma or cranial nerve schwannoma. Small focal hemosiderin deposit in the left midbrain. No evidence of acute hemorrhage, intra-axial mass or significant edema. Ra Thurman MD Procedures No procedures performed. Other Results Laboratory Tests Test 09/26/16 09/26/16 09/27/16 09/28/16 14:10 23:50 07:36 10:20 Urine Opiates Screen NEG Urine Barbiturates Screen NEG Urine Amphetamines Screen NEG Urine Benzodiazepines Screen NEG Urine Cocaine Screen POS Urine Cannabinoids Screen NEG Total Creatine Kinase 47 U/L Troponin I LESS THAN 0.02 NG/ML White Blood Count 5.5 TH/MM3 Red Blood Count 4.62 MIL/MM3 Hemoglobin 12.4 GM/DL Hematocrit 39.6 % Mean Corpuscular Volume 85.9 FL Mean Corpuscular Hemoglobin 26.9 PG Mean Corpuscular Hemoglobin 31.3 % Concent Red Cell Distribution Width 15.2 % Platelet Count 189 TH/MM3 Mean Platelet Volume 9.9 FL Neutrophils (%) (Auto) 56.1 % Lymphocytes (%) (Auto) 30.9 % Monocytes (%) (Auto) 11.3 % Eosinophils (%) (Auto) 0.8 % Basophils (%) (Auto) 0.9 % Neutrophils # (Auto) 3.1 TH/MM3 Lymphocytes # (Auto) 1.7 TH/MM3 Monocytes # (Auto) 0.6 TH/MM3 Eosinophils # (Auto) 0.0 TH/MM3 Basophils # (Auto) 0.0 TH/MM3 CBC Comment DIFF FINAL Differential Comment Prothrombin Time 11.2 SEC Prothromb Time International 1.0 RATIO Ratio Sodium Level 143 MEQ/L Potassium Level 3.7 MEQ/L Chloride Level 110 MEQ/L Carbon Dioxide Level 27.7 MEQ/L Anion Gap 5 MEQ/L Blood Urea Nitrogen 14 MG/DL Creatinine 1.16 MG/DL Estimat Glomerular Filtration 58 ML/MIN Rate Random Glucose 104 MG/DL Hemoglobin A1c 5.6 % Calcium Level 8.7 MG/DL Total Bilirubin 0.4 MG/DL Direct Bilirubin 0.1 MG/DL Indirect Bilirubin 0.3 MG/DL Aspartate Amino Transf 34 U/L (AST/SGOT) Alanine Aminotransferase 41 U/L (ALT/SGPT) Alkaline Phosphatase 59 U/L Total Protein 6.7 GM/DL Albumin 2.7 GM/DL Triglycerides Level 98 MG/DL Cholesterol Level 186 MG/DL LDL Cholesterol 99 MG/DL HDL Cholesterol 67.9 MG/DL Cholesterol/HDL Ratio 2.73 RATIO Hepatitis A IgM Antibody NEGATIVE Hepatitis B Surface Antigen NEGATIVE Hepatitis B Core IgM Antibody NEGATIVE HIV (1&2) Antibody NEGATIVE Hepatitis C Antibody REACTIVE Objective Remarks GENERAL: Poor nutritional state, poor dental hygiene. SKIN: No rashes, ecchymoses or lesions. Cool and dry. HEAD: Atraumatic. Normocephalic. No temporal or scalp tenderness. EYES: Pupils equal round and reactive. Extraocular motions intact. No scleral icterus. No injection or drainage. ENT: Nose without bleeding, purulent drainage or septal hematoma. Throat without erythema, tonsillar hypertrophy or exudate. Uvula midline. Airway patent. NECK: Trachea midline. No JVD or lymphadenopathy. Supple, nontender, no meningeal signs. CARDIOVASCULAR: Regular rate and rhythm without murmurs, gallops, or rubs. RESPIRATORY: decreased breath sounds bilateral, no wheezing or crackles. GASTROINTESTINAL: Abdomen soft, non-tender, nondistended. No hepato-splenomegaly , or palpable masses. No guarding. MUSCULOSKELETAL: Extremities without clubbing, cyanosis, or edema. NEUROLOGICAL: Awake and alert. Cranial nerves II through XII intact. No focal Deficits. Medications and IVs Current Medications Medications (Trade) Dose Ordered Sig/Tracey Route Start Time Stop Time Status Last Admin (Tylenol) 650 mg Q4H PRN PO 09/26/16 18:30 09/27/16 12:18 (Zofran Inj) 4 mg Q6H PRN IVP 09/26/16 18:30 (Dulcolax Supp) 10 mg DAILY PRN MN 09/26/16 18:30 (Colace) 100 mg Q12H PO 09/26/16 20:00 09/30/16 23:26 (Lovenox Inj) 40 mg Q24H SQ 09/26/16 20:00 09/30/16 23:26 (Narcan Inj) 0.4 mg UNSCH PRN IV 09/26/16 18:30 (Protonix Inj) 40 mg Q24H IV PUSH 09/26/16 21:00 09/30/16 23:25 (NS Flush) 2 ml BID IVF 09/27/16 09:00 10/01/16 06:10 (NS Flush) 2 ml UNSCH PRN IVF 09/26/16 21:45 09/30/16 23:27 (D50w (Vial) Inj) 25 ml UNSCH PRN IV PUSH 09/26/16 21:45 (Glucagon Inj) 1 mg UNSCH PRN IM/SQ 09/26/16 21:45 (Keppra) 500 mg Q12HR PO 09/27/16 21:00 09/30/16 23:25 (Pravachol) 40 mg HS PO 09/27/16 21:00 09/30/16 23:25 (Catapres) 0.1 mg Q6H PRN PO 09/28/16 08:00 09/29/16 07:58 ([place] 5-325 Mg) 1 tab Q6H PRN PO 09/28/16 15:15 10/01/16 06:09 (Norvasc) 10 mg DAILY PO 09/29/16 09:00 09/30/16 08:47 (Flexeril) 5 mg Q8H PRN PO 09/30/16 12:30 (Pill Splitter) 1 ea UNSCH PRN OTHER 09/30/16 12:30 A/P Problem List: (1) Schizophrenia ICD Code: 295.90 (2) Chronic sinusitis ICD Code: 473.9 (3) CVA (cerebral vascular accident) ICD Code: I63.9 Assessment and Plan 1. Status post fall probable secondary to acute Ischemic Stroke, as per Neurology specialist recommended to continue, Neuro checks, Aspirin, Statin started on Pravastatin, PT and OT recommended Rehab versus Home with [facility] for PT and OT. 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 on Keppra 500 mg twice a day. EEG. Minimal Encephalopathy and sleep states, no active Seizures. as per Neurology specialist will follow, also with Neurosurgery, she has not Primary Care Physician. 2. 2.4 CM extra-Axial Mass causing Moderate effacement of the Hiral Characteristic of Meningioma or cranial Nerve Schwannoma, read #1 3. Poor Nutritional state and poor self care asked for Speech therapy she past her swallow test and able to start eating, Communication Center Operator and Dietitian consulted. 4. Tobacco dependence/Alcohol abuse and marijuana abuse strongly recommended to stop behavior bronchodilator, Mucolytic and incentive spirometry, 5. Chronic back pain by history 6. Depression and Schizophrenia. 7. Accelerated Hypertension Improving but has higher readings in am will add low dose TAM inhibitor and follow by PCP. 9. Hepatitis C seropositive on tests. Quantitative studies asked. 10. Polysubstance abuse strongly recommended to stop this behavior. Cocaine positive on her Drug Screen. DVT prophylaxis with Lovenox GI prophylaxis with Protonix Discussed with Patient in the room and with her Niece Miss Es Wheat to the phone number [phone] all questions explained and answered to the best of my abilities, also discussed Polysubstance abuse the Niece did not know that we had a positive drug screen and also that the patient states she drinks alcohol and also abuse Marijuana occasional. as per Physical Therapy will need front wheeled walker and as per OT 3 in 1 commode and shower bench. Code Status Full Code Discharge Planning Discharge home on [facility] for skilled nurse and Physical Therapy as outpatient. Problem Qualifiers (1) CVA (cerebral vascular accident): Qualified Code: I63.8 - Cerebrovascular accident (CVA) due to other mechanism Eddie Alfonso MD Oct 01, 2016 08:06
[2016-10-01] MEDS: DOCUSATE SODIUM 100 MG CAP PO SCH (08:23)
[2016-10-01] MEDS: levETIRAcetam 500 MG TAB PO SCH (08:23)
[2016-10-01] MEDS ORDERED: LISI-519 PO (09:50)
[2016-10-01] MEDS ORDERED: CYCL1TAB29 PO (09:50)
[2016-10-01] MEDS ORDERED: PRAV40TA PO (09:50)
[2016-10-01] MEDS ORDERED: LEVE500 PO (09:50)
[2016-10-01] MEDS ORDERED: AMLO10 PO (09:50)
--- NOTE | 2016-10-01 09:52 | HHI.DS ---
Discharge Summary Admission Date Sep 26, 2016 at 19:04 Discharge Date: Oct 01, 2016 Admitting Diagnosis Stroke (1) CVA (cerebral vascular accident) ICD Code: I63.9 Procedures No procedures performed. Brief History - From Admission This is a pleasant 56 y/o Female who is in Emergency room with her relative Mrs. Yoly Pickering but she does not too much about her story, what she knows is that the patient is not able to take care of herself at home, she is all day laying in bed and only goes to the restroom and comes back, she is not able to take care of herself, poor nutritional state, she say to me that today went to the restroom and fell for that reason came to Emergency room for evaluation. as we know she has chronic back pain, Schizophrenia, Depression, Hypertension. CBC/BMP: 09/27/16 0736 09/27/16 0736 Significant Findings Laboratory Tests Test 09/28/16 10:20 Hepatitis C Antibody REACTIVE (NEGATIVE) Imaging Last Impressions Upper Extremity Ultrasound 09/28/16 0000 Signed Impressions: Service Date/Time: Wednesday, September 28, 2016 18:25 - CONCLUSION: No DVT right arm. Mirza Curtis MD Head Magnetic Resonance Angiography 09/27/16 0000 Signed Impressions: Service Date/Time: Tuesday, September 27, 2016 13:50 - CONCLUSION: No evidence of significant proximal or large vessel vasculopathy or steno-occlusive disease. No evidence of aneurysm or vascular malformation. Ra Thurman MD Head CT 09/26/16 1215 Signed Impressions: Service Date/Time: September 12:39 - CONCLUSION: Marked periventricular white matter changes extending into the brain stem, negative for parenchymal hemorrhage or mass lesion. MRI may be helpful. Willie Alvarez MD FACR Chest X-Ray 09/26/16 0000 Signed Impressions: Service Date/Time: September 13:14 - CONCLUSION: No acute disease. Willie Alvarez MD FACR Brain MRI 09/26/16 0000 Signed Impressions: Service Date/Time: September 16:07 - CONCLUSION: Extensive T2 hyperintensity throughout the brainstem, basal ganglia and cerebral white matter characteristic of severe chronic ischemic white matter disease. Small focus of restricted diffusion in the right internal capsule and bianchi radiata characteristic of a small evolving infarct. 2.4 cm extra-axial mass causing moderate effacement of the hiral characteristic of a meningioma or cranial nerve schwannoma. Small focal hemosiderin deposit in the left midbrain. No evidence of acute hemorrhage, intra-axial mass or significant edema. Ra Thurman MD PE at Discharge GENERAL: Poor nutritional state, poor dental hygiene. SKIN: No rashes, ecchymoses or lesions. Cool and dry. HEAD: Atraumatic. Normocephalic. No temporal or scalp tenderness. EYES: Pupils equal round and reactive. Extraocular motions intact. No scleral icterus. No injection or drainage. ENT: Nose without bleeding, purulent drainage or septal hematoma. Throat without erythema, tonsillar hypertrophy or exudate. Uvula midline. Airway patent. NECK: Trachea midline. No JVD or lymphadenopathy. Supple, nontender, no meningeal signs. CARDIOVASCULAR: Regular rate and rhythm without murmurs, gallops, or rubs. RESPIRATORY: decreased breath sounds bilateral, no wheezing or crackles. GASTROINTESTINAL: Abdomen soft, non-tender, nondistended. No hepato-splenomegaly , or palpable masses. No guarding. MUSCULOSKELETAL: Extremities without clubbing, cyanosis, or edema. NEUROLOGICAL: Awake and alert. Cranial nerves II through XII intact. No focal Deficits. Hospital Course This is a pleasant 56 y/o Female who is not able to take care of herself at home , she is all day laying in bed and only goes to the restroom and comes back, she is not able to take care of herself, poor nutritional state, she say to me that today went to the restroom and fell for that reason came to Emergency room for evaluation. as we know she has chronic back pain, Schizophrenia, Depression, Hypertension. 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 on Chest x ray I may see the right shoulder I do not see fracture, no DVT on Venous Ultrasound. will start Muscle relaxant. she is ready for discharge to Inpatient Rehabilitation if possible. 09/30 Discussed with Physical Therapy will review today and give recommendations , she has no Insurance will be difficult to get Rehab, so was discussed with her Niece Es Wheat to the phone number [phone] the patient and her Fiance Mr. Kole Ramírez in the room, she wants her Aunt discharged before Friday due to that she has appointment for her Medicaid Insurance was discussed with Trust Manager. no Nausea, vomit or diarrhea. 10/01 Patient ready for discharge she will go home with [facility] for Skilled nurse and will get follow up with Neurology specialist, given Physical Therapy as outpatient no complaint no Nausea, vomit or Diarrhea Assessment and Plan 1. Status post fall probable secondary to acute Ischemic Stroke, as per Neurology specialist recommended to continue, Neuro checks, Aspirin, Statin started on Pravastatin, PT and OT recommended Rehab versus Home with [facility] for PT and OT. 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 on Keppra 500 mg twice a day. EEG. Minimal Encephalopathy and sleep states, no active Seizures. as per Neurology specialist will follow, also with Neurosurgery, she has not Primary Care Physician. 2. 2.4 CM extra-Axial Mass causing Moderate effacement of the Hiral Characteristic of Meningioma or cranial Nerve Schwannoma, read #1 3. Poor Nutritional state and poor self care asked for Speech therapy she past her swallow test and able to start eating, Trust Manager and Dietitian consulted. 4. Tobacco dependence/Alcohol abuse and marijuana abuse strongly recommended to stop behavior bronchodilator, Mucolytic and incentive spirometry, 5. Chronic back pain by history 6. Depression and Schizophrenia. 7. Accelerated Hypertension Improving but has higher readings in am will add low dose TAM inhibitor and follow by PCP. added Lisinopril 5 mg daily and follow with PCP. 9. Hepatitis C seropositive on tests. Quantitative studies asked. 10. Polysubstance abuse strongly recommended to stop this behavior. Cocaine positive on her Drug Screen. DVT prophylaxis with Lovenox GI prophylaxis with Protonix Discussed with Patient in the room and with her Niece Miss Es Wheat to the phone number [phone] all questions explained and answered to the best of my abilities, also discussed Polysubstance abuse the Niece did not know that we had a positive drug screen and also that the patient states she drinks alcohol and also abuse Marijuana occasional. as per Physical Therapy will need front wheeled walker and as per OT 3 in 1 commode and shower bench. Code Status Full Code Discharge Planning Discharge home on [facility] for skilled nurse and Physical Therapy as outpatient. Pt Condition on Discharge: Stable Discharge Disposition: Disch w/ Home Health Serv Discharge Time: > 30 minutes Discharge Instructions DIET: Follow Instructions for: Heart Healthy Diet Activities you can perform: Regular-No Restrictions Other Activity Instructions: Follow Physical Therapy recommendations will need Front Wheeled Walker. Eddie Alfonso MD Oct 01, 2016 09:52
[2016-10-01] MEDS ORDERED: MISC-163 (10:00)
[2016-10-01] MEDS ORDERED: MISC-289 (10:01)
[2016-10-01] MEDS ORDERED: WALKER WHEELS/F1 MIS (10:01)
[2016-10-01] MEDS ORDERED: LISINOPRIL 5 MG TAB PO ONE (11:00)
[2016-10-01 12:00] VITALS: BP 134/82; PULSE 84; RESP 19; TEMP 97.3; O2SAT 98
--- NOTE | 2016-10-01 15:09 | HHI.FF ---
Face to Face Verification Diagnosis: (1) Schizophrenia (2) CVA (cerebral vascular accident) (3) Brain mass Home Health Nursing Order: Medical education Signs/symptoms of disease process Medication education-adverse effect Nursing assessment with vital signs I have seen patient Heather Benavidez on 10/01/16. My clinical findings support the need for the requested home health care services because: Ltd mobility - disease progression Deconditioned w/ increased weakness Limited ability to care for self High risk of falls I certify that my clinical findings support that this patient is homebound because: Impaired cognitive ability/safety Unsteady gait/balance Unsafe to leave home unassisted Eddie Alfonso MD Oct 01, 2016 15:09
[2016-10-02 09:51] LABS: HCV RNA PCR LOGIU/ML 6.45 (())
[2016-10-16] MEDS ORDERED: MISC-289 (11:32)
[2016-10-16] MEDS ORDERED: PRAV40TA PO (11:38)
[2016-10-16] MEDS ORDERED: LISI10TA3 PO (11:38)
[2016-10-16] MEDS ORDERED: CYCL1TAB29 PO (11:38)
[2016-10-16] MEDS ORDERED: LEVE500 PO (11:38)
[2016-10-16] MEDS ORDERED: AMLO10 PO (11:38)
== END 2016-10-01 13:18 | disposition home health service (06) | DRG 66 ==
LOC: NEPE 12:03 → NEDA 19:04 → N05B 21:02
PROVIDERS: ADMIT Internal Medicine; ATTEND Internal Medicine
DX: I63.9 Cerebral infarction, unspecified (principal); G93.89 Other specified disorders of brain; F03.90 Unspecified dementia, unspecified severity, without behavioral disturbance, psychotic disturbance, mood disturbance, and anxiety; I10 Essential (primary) hypertension; R90.82 White matter disease, unspecified; D32.9 Benign neoplasm of meninges, unspecified; D33.3 Benign neoplasm of cranial nerves; G89.29 Other chronic pain; F32.9 Major depressive disorder, single episode, unspecified; F20.9 Schizophrenia, unspecified; M54.9 Dorsalgia, unspecified; F17.200 Nicotine dependence, unspecified, uncomplicated; F12.10 Cannabis abuse, uncomplicated; F10.10 Alcohol abuse, uncomplicated; Z82.3 Family history of stroke; F14.10 Cocaine abuse, uncomplicated; J32.9 Chronic sinusitis, unspecified; Z86.73 Personal history of transient ischemic attack (TIA), and cerebral infarction without residual deficits; M25.511 Pain in right shoulder; B19.20 Unspecified viral hepatitis C without hepatic coma
CPT/HCPCS: 70450; 70544; 70553; 71010; 80048; 80053; 80061; 80074; 80076; 80307; 81001; 82550; 83036; 83605; 84443; 84484; 85025; 85610; 85730; 86703; 86803; 87522; 93005; 93971; 94150; 95819; 96361; 96374; 96375; A9579; C9113; J0360; J1650; J2060; J7030

== ENCOUNTER 2016-10-21 10:53 | Observation (INO) | payer MEDICAID, OTHER ==
[2016-10-21] VITALS (7 sets, daily range): BP systolic 132–167; BP diastolic 76–98; PULSE 77–96; RESP 16–20; TEMP 97.7–98; O2SAT 95–100
[~2016-10-21] VITALS: Ht 170.2 cm; Wt 66.0 kg
[~2016-10-21 10:53] MED LIST changes: +AMLO10 PO; +CYCL1TAB29 PO; +LEVE500 PO; -LISI-366 PO; +LISI10TA3 PO; +MISC-163; +MISC-289; +PRAV40TA PO; +WALKER WHEELS/F1 MIS
[2016-10-21] MEDS ORDERED: SODIUM CHLORIDE 0.9% FLUSH 10 ML FLUSH IVF PRN (11:30)
--- NOTE | 2016-10-21 11:34 | PD ---
HPI Chief Complaint: Neuro Symptoms/ Deficits Time Seen by Provider: 11:26 Travel History International Travel<30 days: No Contact w/Intl Traveler<30days: No Traveled to known affect area: No History of Present Illness HPI Patient is a 48-year-old female presents emergency department for evaluation of a headache. Patient states she broke up with a 10 out of 10 frontal headache that she describes as throbbing. She reports associated visual changes, double vision. She states that she can't hold herself up when she is walking to the headache. Patient reports photophobia but denies any nausea, vomiting, chest pain. She states it's hard to breath at times but does not feel short of breath. 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 PFSH Past Medical History Arthritis: Yes Anxiety: No Depression: Yes Cancer: No Cardiovascular Problems: Yes Cerebrovascular Accident: Yes (TIA) Endocrine: No Gastrointestinal Disorders: Yes Genitourinary: Yes (INCONTINENT AT TIMES) Hypertension: Yes Immune Disorder: No Musculoskeletal: Yes Neurologic: Yes (residual right-sided weakness) Reproductive: No Migraines: Yes Past Surgical History Gynecologic Surgery: Yes (BREAST BIOPSY, HYSTERECTOMY) Hysterectomy: Yes Other Surgery: Yes Social History Alcohol Use: Yes (OCCASIONALLY) Tobacco Use: Yes Substance Use: Yes (recent urine drug screen was positive for cocaine) Allergies-Medications (Allergen,Severity, Reaction): Coded Allergies: No Known Allergies (Verified , 10/21/16) Reported Meds & Prescriptions Reported Meds & Active Scripts Active Lisinopril 10 Mg Tab 10 Mg PO DAILY Pravachol (Pravastatin) 40 Mg Tab 40 Mg PO HS Keppra (Levetiracetam) 500 Mg Tab 500 Mg PO Q12HR Flexeril (Cyclobenzaprine HCl) 10 Mg Tab 5 Mg PO Q8HR Norvasc (Amlodipine Besylate) 10 Mg Tab 10 Mg PO DAILY Review of Systems Except as stated in HPI: all other systems reviewed are Neg General / Constitutional: No: Fever, Chills Eyes: Positive: Diploplia, Visual changes HENT: Positive: Headaches Cardiovascular: No: Chest Pain or Discomfort Respiratory: No: Shortness of Breath Gastrointestinal: No: Nausea, Vomiting, Abdominal Pain Genitourinary: No: Dysuria Neurologic: Positive: Weakness (right sided), Dizziness, Coordination Problem, Headache Physical Exam Narrative GENERAL: Thin, well-developed, alert female. Resting comfortably in no acute distress. SKIN: Focused skin assessment warm/dry. HEAD: Atraumatic. Normocephalic. EYES: Pupils equal and round. No scleral icterus. No injection or drainage. Extraocular movements are intact. ENT: No nasal bleeding or discharge. Mucous membranes pink and moist. NECK: Trachea midline. No JVD. CARDIOVASCULAR: Regular rate and rhythm. No murmur appreciated. RESPIRATORY: No accessory muscle use. Clear to auscultation. Breath sounds diminished in bases GASTROINTESTINAL: Abdomen soft, non-tender, nondistended. Hepatic and splenic margins not palpable. MUSCULOSKELETAL: No obvious deformities. No clubbing. No cyanosis. No edema. NEUROLOGICAL: Awake and alert. 3/5 muscle strength on right upper lower extremity. 5 out of 5 on the left upper and lower extremities. PSYCHIATRIC: Appropriate mood and affect; insight and judgment normal. Data Data Last Documented VS Vital Signs Date Time Temp Pulse Resp B/P Pulse Ox O2 Delivery O2 Flow Rate FiO2 10/21/16 15:18 98.0 80 16 158/86 99 Room Air Orders Electrocardiogram (10/21/16 11:24) Prothrombin Time / Inr (Pt) (10/21/16 11:24) Act Partial Throm Time (Ptt) (10/21/16 11:24) Complete Blood Count With Diff (10/21/16 11:24) Comprehensive Metabolic Panel (10/21/16 11:24) Creatine Kinase (Cpk) (10/21/16 11:24) Troponin I (10/21/16 11:24) Urinalysis - C+S If Indicated (10/21/16 11:24) Ct Brain W/O Iv Contrast(Rout) (10/21/16 11:24) Ecg Monitoring (10/21/16 11:24) Iv Access Insert/Monitor (10/21/16 11:24) Oximetry (10/21/16 11:24) Blood Glucose (10/21/16 11:24) Sodium Chloride 0.9% Flush (Ns Flush) (10/21/16 11:30) Drug Screen, Random Urine (10/21/16 11:28) Ondansetron Inj (Zofran Inj) (10/21/16 11:45) Morphine Inj (Morphine Inj) (10/21/16 11:45) Mri Brain W&W/O Contrast (10/21/16 ) Lorazepam Inj (Ativan Inj) (10/21/16 15:30) Admit Order (Ed Use Only) (10/21/16 15:24) Labs Laboratory Tests Test 10/21/16 10/21/16 10/21/16 11:45 12:20 13:15 Sodium Level 143 MEQ/L Potassium Level 4.2 MEQ/L Chloride Level 107 MEQ/L Carbon Dioxide Level 27.6 MEQ/L Anion Gap 8 MEQ/L Blood Urea Nitrogen 24 MG/DL Creatinine 0.96 MG/DL Estimat Glomerular Filtration 72 ML/MIN Rate Random Glucose 79 MG/DL Calcium Level 9.4 MG/DL Total Bilirubin 0.2 MG/DL Aspartate Amino Transf 43 U/L (AST/SGOT) Alanine Aminotransferase 66 U/L (ALT/SGPT) Alkaline Phosphatase 99 U/L Total Creatine Kinase 102 U/L Troponin I LESS THAN 0.02 NG/ML Total Protein 8.1 GM/DL Albumin 3.7 GM/DL Urine Color YELLOW Urine Turbidity CLEAR Urine pH 5.5 Urine Specific [place] 1.021 Urine Protein NEG mg/dL Urine Glucose (UA) NEG mg/dL Urine Ketones NEG mg/dL Urine Occult Blood NEG Urine Nitrite NEG Urine Bilirubin NEG Urine Urobilinogen LESS THAN 2.0 MG/DL Urine Leukocyte Esterase NEG Urine RBC LESS THAN 1 /hpf Urine WBC 1 /hpf Urine Squamous Epithelial <1 /hpf Cells Urine Hyaline Casts 2 /lpf Urine Mucus FEW /lpf Microscopic Urinalysis Comment CATH-CULT NOT IND Urine Opiates Screen NEG Urine Barbiturates Screen NEG Urine Amphetamines Screen NEG Urine Benzodiazepines Screen NEG Urine Cocaine Screen NEG Urine Cannabinoids Screen NEG White Blood Count 4.8 TH/MM3 Red Blood Count 4.65 MIL/MM3 Hemoglobin 12.8 GM/DL Hematocrit 38.3 % Mean Corpuscular Volume 82.4 FL Mean Corpuscular Hemoglobin 27.6 PG Mean Corpuscular Hemoglobin 33.5 % Concent Red Cell Distribution Width 15.0 % Platelet Count 165 TH/MM3 Mean Platelet Volume 9.8 FL Neutrophils (%) (Auto) 41.9 % Lymphocytes (%) (Auto) 41.7 % Monocytes (%) (Auto) 13.2 % Eosinophils (%) (Auto) 2.2 % Basophils (%) (Auto) 1.0 % Neutrophils # (Auto) 2.0 TH/MM3 Lymphocytes # (Auto) 2.0 TH/MM3 Monocytes # (Auto) 0.6 TH/MM3 Eosinophils # (Auto) 0.1 TH/MM3 Basophils # (Auto) 0.0 TH/MM3 CBC Comment DIFF FINAL Differential Comment Hematology Comments Prothrombin Time 11.0 SEC Prothromb Time International 1.0 RATIO Ratio Activated Partial 32.0 SEC Thromboplast Time MDM Medical Decision Making Medical Screen Exam Complete: Yes Emergency Medical Condition: Yes Interpretation(s) Last Impressions Head CT 10/21/16 1124 Signed Impressions: Service Date/Time: Friday, October 21, 2016 11:50 - CONCLUSION: Extra-axial posterior fossa mass is noted as described above with mild mass effect on the brainstem. No acute findings. Chip Castellanos MD Laboratory Tests Test 10/21/16 10/21/16 10/21/16 11:45 12:20 13:15 Sodium Level 143 MEQ/L Potassium Level 4.2 MEQ/L Chloride Level 107 MEQ/L Carbon Dioxide Level 27.6 MEQ/L Anion Gap 8 MEQ/L Blood Urea Nitrogen 24 MG/DL Creatinine 0.96 MG/DL Estimat Glomerular Filtration 72 ML/MIN Rate Random Glucose 79 MG/DL Calcium Level 9.4 MG/DL Total Bilirubin 0.2 MG/DL Aspartate Amino Transf 43 U/L (AST/SGOT) Alanine Aminotransferase 66 U/L (ALT/SGPT) Alkaline Phosphatase 99 U/L Total Creatine Kinase 102 U/L Troponin I LESS THAN 0.02 NG/ML Total Protein 8.1 GM/DL Albumin 3.7 GM/DL Urine Color YELLOW Urine Turbidity CLEAR Urine pH 5.5 Urine Specific [place] 1.021 Urine Protein NEG mg/dL Urine Glucose (UA) NEG mg/dL Urine Ketones NEG mg/dL Urine Occult Blood NEG Urine Nitrite NEG Urine Bilirubin NEG Urine Urobilinogen LESS THAN 2.0 MG/DL Urine Leukocyte Esterase NEG Urine RBC LESS THAN 1 /hpf Urine WBC 1 /hpf Urine Squamous Epithelial <1 /hpf Cells Urine Hyaline Casts 2 /lpf Urine Mucus FEW /lpf Microscopic Urinalysis Comment CATH-CULT NOT IND Urine Opiates Screen NEG Urine Barbiturates Screen NEG Urine Amphetamines Screen NEG Urine Benzodiazepines Screen NEG Urine Cocaine Screen NEG Urine Cannabinoids Screen NEG White Blood Count 4.8 TH/MM3 Red Blood Count 4.65 MIL/MM3 Hemoglobin 12.8 GM/DL Hematocrit 38.3 % Mean Corpuscular Volume 82.4 FL Mean Corpuscular Hemoglobin 27.6 PG Mean Corpuscular Hemoglobin 33.5 % Concent Red Cell Distribution Width 15.0 % Platelet Count 165 TH/MM3 Mean Platelet Volume 9.8 FL Neutrophils (%) (Auto) 41.9 % Lymphocytes (%) (Auto) 41.7 % Monocytes (%) (Auto) 13.2 % Eosinophils (%) (Auto) 2.2 % Basophils (%) (Auto) 1.0 % Neutrophils # (Auto) 2.0 TH/MM3 Lymphocytes # (Auto) 2.0 TH/MM3 Monocytes # (Auto) 0.6 TH/MM3 Eosinophils # (Auto) 0.1 TH/MM3 Basophils # (Auto) 0.0 TH/MM3 CBC Comment DIFF FINAL Differential Comment Hematology Comments Prothrombin Time 11.0 SEC Prothromb Time International 1.0 RATIO Ratio Activated Partial 32.0 SEC Thromboplast Time Vital Signs Date Time Temp Pulse Resp B/P Pulse Ox O2 Delivery O2 Flow Rate FiO2 10/21/16 11:07 88 20 100 Room Air 10/21/16 11:07 84 18 155/83 100 Room Air 10/21/16 10:57 97.9 96 17 132/98 98 Room Air Differential Diagnosis TIA versus CVA versus migraine versus vertigo versus other Narrative Course Patient is a 56-year-old female presenting to the emergency department for evaluation of a headache that she woke up with this morning. Patient has a history of a recent CVA. She is reporting visual changes in gait abnormality that is worse for her this morning. Labs and imaging ordered and pending. IV access initiated. Patient placed on telemetry monitoring, continuous pulse oximetry. CT brain shows extra-axial posterior fossa mass with mild mass effect on the brainstem, no acute findings. CBC is unremarkable Chemistry with elevated BUN 24, mildly elevated AST and ALT, troponin is negative. Coags are unremarkable Tox screen is negative Urinalysis is negative Vital signs are stable. Discussed findings of repeated CAT scan of the brain with Dr. Busch. He stated that he does not believe patient's symptoms are due to the mass effect on the brainstem. He states that this is likely a Clivus this meningioma versus a schwannoma. He recommends an MRI of the brain be repeated and neurology reevaluate patient. [facility] paged for admission. Dr. Eller accepted admission. Placed under observation. Patient is agreeable to plan. Confirmed with patient that she has not been on any anticoagulation/aspirin/ Plavix since her discharge. She states that she was never given aspirin to take. Diagnosis Primary Impression: Neurological signs Additional Impressions: History of cerebrovascular accident with current residual effects Brain mass Admitting Information Admitting Physician Requests: Observation Condition: Stable Isabel Ny [facility] Oct 21, 2016 11:34
[2016-10-21] MEDS ORDERED: ONDANSETRON HCL 4 MG/2 ML VIAL IV PUSH ONE (11:45)
[2016-10-21] MEDS ORDERED: MORPHINE SULFATE 4 MG/ML INJ IV PUSH ONE (11:45)
--- NOTE | 2016-10-21 12:19 | RADRPT ---
EXAM DATE/TIME: 10/21/2016 11:50 [place] COMPARISON: MRI BRAIN W & W/O CONTRAST, September 26, 2016, 16:07. CT BRAIN W/O CONTRAST, September 26, 2016, 12:39. INDICATIONS : Cephalgia. RADIATION DOSE: 56.35 CTDIvol (mGy) MEDICAL HISTORY : Hypertension. Stroke last week. SURGICAL HISTORY : None. None. ENCOUNTER: Initial ACUITY: 1 day PAIN SCALE: 7/10 LOCATION: cranial TECHNIQUE: Multiple contiguous axial images were obtained of the head. Using automated exposure control and adj ustment of the mA and/or kV according to patient size, radiation dose was kept as low as reasonably a chievable to obtain optimal diagnostic quality images. FINDINGS: There is no evidence for intracranial hemorrhage. Moderate patchy and confluent diminished attenuatio n in the bilateral subcortical white matter, centrum semiovale and periventricular white matter again seen. No fractures are identified. There is abnormal hyperdense mass in the posterior fossa which ap pears extra-axial and demonstrates mass effect on the hiral. This measures approximately 2.2 x 1.2 cm in transverse and AP dimension. This has been described previously. CONCLUSION: Extra-axial posterior fossa mass is noted as described above with mild mass effect on the brainstem. No acute findings. Cihp Castellanos MD on October 21, 2016 at 12:15 Board Certified Radiologist. This report was verified electronically.
[2016-10-21 12:39] LABS: ALKALINE PHOSPHATASE 99 U/L (45-117); ALT (GPT) 66 U/L (10-53); CREATINE KINASE 102 U/L (26-192); TOTAL BILIRUBIN ADULT 0.2 MG/DL (0.2-1.0)
[2016-10-21 12:53] LABS: ANION GAP 8 MEQ/L (5-15); AST (GOT) 43 U/L (15-37); BICARBONATE 27.6 MEQ/L (21.0-32.0); BLOOD UREA NITROGEN 24 MG/DL (7-18); CHLORIDE 107 MEQ/L (98-107); GLOMERULAR FILTRATION RATE 72 ML/MIN (>89); POTASSIUM 4.2 MEQ/L (3.5-5.1); SODIUM (NA) 143 MEQ/L (136-145)
[2016-10-21 12:54] LABS: AMPHETAMINE, URINE NEG (NEG); BARBITURATES, URINE NEG (NEG); COCAINE, URINE NEG (NEG)
[2016-10-21 12:56] LABS: BLOOD, URINE NEG (NEG); COMMENT (UR) CATH-CULT NOT IND; CULTURE IF INDICATED CATH CULTURE NOT IND; GLUCOSE,URINE NEG (NEG); HYALINE CAST, URINE 2 /lpf (RARE); KETONE, URINE NEG (NEG); MUCUS URINE FEW /lpf (OCC); NITRITE,URINE NEG (NEG); PH, URINE 5.5 (5.0-8.5); SQUAMOUS EPITHELIAL CELL URINE <1 /hpf (0-5); URINE COLOR YELLOW (YELLW/STRAW)
[2016-10-21 13:46] LABS: EOSINOPHIL # 0.1 TH/MM3 (0-0.4); EOSINOPHIL % 2.2 % (0.0-4.0); HEMATOCRIT 38.3 % (35.0-46.0); HEMO FLAGS DIFF FINAL; LYMPH % 41.7 % (9.0-44.0); MEAN CELL VOLUME 82.4 FL (80.0-100.0); MEAN CORPUSCULAR HEMOGLOBIN 27.6 PG (27.0-34.0); MEAN CORPUSCULAR HGB CONC 33.5 % (32.0-36.0); MONO % 13.2 % (0.0-8.0); NEUT % 41.9 % (16.0-70.0); PLATELET COUNT 165 TH/MM3 (150-450); RED BLOOD COUNT 4.65 MIL/MM3 (4.00-5.30); WHITE BLOOD COUNT 4.8 TH/MM3 (4.0-11.0)
[2016-10-21] MEDS ORDERED: LORazepam 2 MG/ML VIAL IV PUSH ONE (15:30)
--- NOTE | 2016-10-21 15:41 | HHI.HP ---
[facility] Service [facility] Primary Care Physician No Primary Care Physician Admission Diagnosis neurological symptoms Diagnoses: (1) Brain mass Diagnosis: Principal Chief Complaint: blurred vision Travel History International Travel<30 Days: No Contact w/Intl Traveler <30 Da: No Traveled to Known Affected Are: No History of Present Illness patient is a 56 y/o female with recent CVA who presented back to ER with blurred vision. she says that this morning when she woke up she started to have worsening weakness to the extent that she wasn't able to walk. she's also complaining of blurred vision and frontal headache.there's no definite report of slurred speech.she denies any chest pain or sob. Review of Systems Constitutional: COMPLAINS OF: Fatigue, DENIES: Fever, Weight loss, Chills, Night Sweats Eyes: COMPLAINS OF: Blurred vision, DENIES: Diplopia, Vision loss, Double Vision Ears, nose, mouth, throat: DENIES: Tinnitus, Vertigo, Throat pain, Epistaxis Respiratory: DENIES: Apneas, Cough, Snoring, Wheezing, Hemoptysis, Sputum production, Shortness of breath Cardiovascular: DENIES: Chest pain, Palpitations, Syncope, Dyspnea on Exertion , PND, Lower Extremity Edema, Orthopnea, Claudication Gastrointestinal: DENIES: Abdominal pain, Black stools, Bloody stools, Constipation, Diarrhea, Nausea, Vomiting, Difficulty Swallowing, Anorexia Genitourinary: DENIES: Urinary frequency, Urgency, Hematuria, Dysuria Musculoskeletal: DENIES: Joint pain, Muscle aches, Stiffness, Joint Swelling Integumentary: DENIES: Rash Neurologic: COMPLAINS OF: Headache, DENIES: Abnormal gait, Localized weakness , Paresthesias, Seizures, Speech Problems, Tremor, Poor Balance Psychiatric: DENIES: Anxiety, Confusion, Mood changes, Depression, Hallucinations, Agitation, Suicidal Ideation, Homicidal Ideation, Delusions Past Family Social History Past Medical History recent CVA hypertension Reported Medications Lisinopril 10 Mg Tab 10 Mg PO DAILY Pravachol (Pravastatin) 40 Mg Tab 40 Mg PO HS Keppra (Levetiracetam) 500 Mg Tab 500 Mg PO Q12HR Flexeril (Cyclobenzaprine HCl) 10 Mg Tab 5 Mg PO Q8HR Norvasc (Amlodipine Besylate) 10 Mg Tab 10 Mg PO DAILY Allergies: Coded Allergies: No Known Allergies (Verified , 10/21/16) Active Ordered Medications Current Medications Sodium Chloride (NS Flush) 2 ml UNSCH PRN IVF FLUSH AFTER USING IV ACCESS; Start 10/21/16 at 11:30 Ondansetron HCl (Zofran Inj) 4 mg ONCE ONCE IV PUSH Last administered on 12:07; Start 10/21/16 at 11:45; Stop 10/21/16 at 11:46; Status DC Morphine Sulfate (Morphine Inj) 4 mg ONCE ONCE IV PUSH Last administered on 12:07; Start 10/21/16 at 11:45; Stop 10/21/16 at 11:46; Status DC Lorazepam (Ativan Inj) 1 mg ONCE ONCE IV PUSH ; Start 10/21/16 at 15:30; Stop 10/21/16 at 15:31; Status DC Social History smokes a couple of cigarettes a day- doesn't drink. Physical Exam Vital Signs Vital Signs Date Time Temp Pulse Resp B/P Pulse Ox O2 Delivery O2 Flow Rate FiO2 10/21/16 15:18 98.0 80 16 158/86 99 Room Air 10/21/16 13:50 77 18 146/83 99 Room Air 10/21/16 11:07 88 20 100 Room Air 10/21/16 11:07 84 18 155/83 100 Room Air 10/21/16 10:57 97.9 96 17 132/98 98 Room Air Physical Exam GENERAL: This is a well-nourished, well-developed patient, in no apparent distress. SKIN: No rashes, ecchymoses or lesions. Cool and dry. HEAD: Atraumatic. Normocephalic. No temporal or scalp tenderness. EYES: Pupils equal round and reactive. Extraocular motions intact. No scleral icterus. No injection or drainage. ENT: Nose without bleeding, purulent drainage or septal hematoma. Throat without erythema, tonsillar hypertrophy or exudate. Uvula midline. Airway patent. NECK: Trachea midline. No JVD or lymphadenopathy. Supple, nontender, no meningeal signs. CARDIOVASCULAR: Regular rate and rhythm without murmurs, gallops, or rubs. RESPIRATORY: Clear to auscultation. Breath sounds equal bilaterally. No wheezes , rales, or rhonchi. GASTROINTESTINAL: Abdomen soft, non-tender, nondistended. No hepato-splenomegaly , or palpable masses. No guarding. MUSCULOSKELETAL: Extremities without clubbing, cyanosis, or edema. No joint tenderness, effusion, or edema noted. No calf tenderness. Negative Homans sign bilaterally. NEUROLOGICAL: Awake and alert. mild left-sided weakness. Laboratory Laboratory Tests Test 10/21/16 10/21/16 10/21/16 11:45 12:20 13:15 Sodium Level 143 Potassium Level 4.2 Chloride Level 107 Carbon Dioxide Level 27.6 Anion Gap 8 Blood Urea Nitrogen 24 Creatinine 0.96 Estimat Glomerular Filtration 72 Rate Random Glucose 79 Calcium Level 9.4 Total Bilirubin 0.2 Aspartate Amino Transf 43 (AST/SGOT) Alanine Aminotransferase 66 (ALT/SGPT) Alkaline Phosphatase 99 Total Creatine Kinase 102 Troponin I LESS THAN 0.02 Total Protein 8.1 Albumin 3.7 Urine Color YELLOW Urine Turbidity CLEAR Urine pH 5.5 Urine Specific [place] 1.021 Urine Protein NEG Urine Glucose (UA) NEG Urine Ketones NEG Urine Occult Blood NEG Urine Nitrite NEG Urine Bilirubin NEG Urine Urobilinogen LESS THAN 2.0 Urine Leukocyte Esterase NEG Urine RBC LESS THAN 1 Urine WBC 1 Urine Squamous Epithelial <1 Cells Urine Hyaline Casts 2 Urine Mucus FEW Microscopic Urinalysis Comment CATH-CULT NOT IND Urine Opiates Screen NEG Urine Barbiturates Screen NEG Urine Amphetamines Screen NEG Urine Benzodiazepines Screen NEG Urine Cocaine Screen NEG Urine Cannabinoids Screen NEG White Blood Count 4.8 Red Blood Count 4.65 Hemoglobin 12.8 Hematocrit 38.3 Mean Corpuscular Volume 82.4 Mean Corpuscular Hemoglobin 27.6 Mean Corpuscular Hemoglobin 33.5 Concent Red Cell Distribution Width 15.0 Platelet Count 165 Mean Platelet Volume 9.8 Neutrophils (%) (Auto) 41.9 Lymphocytes (%) (Auto) 41.7 Monocytes (%) (Auto) 13.2 Eosinophils (%) (Auto) 2.2 Basophils (%) (Auto) 1.0 Neutrophils # (Auto) 2.0 Lymphocytes # (Auto) 2.0 Monocytes # (Auto) 0.6 Eosinophils # (Auto) 0.1 Basophils # (Auto) 0.0 CBC Comment DIFF FINAL Differential Comment Hematology Comments Prothrombin Time 11.0 Prothromb Time International 1.0 Ratio Activated Partial 32.0 Thromboplast Time Result Diagram: 10/21/16 1315 10/21/16 1145 Imaging Last Impressions Head CT 10/21/16 1124 Signed Impressions: Service Date/Time: Friday, October 21, 2016 11:50 - CONCLUSION: Extra-axial posterior fossa mass is noted as described above with mild mass effect on the brainstem. No acute findings. Chip Castellanos MD Assessment and Plan Assessment and Plan A/P - recent CVA with extra-axial mass and mass effect continue with neuro-checks- will obtain MRI brain and consult neurology- of note the CT findings have been discussed with the neurosurgery with the recommendations as noted above. continue keppra and statin- will consult PT. start aspirin after MRI brain is resulted. -hypertension; resume home BP meds after MRI brain is resulted. -DVT prophylaxis with SCD's Discussed Condition With ER and the patient. Ky Stewart MD Oct 21, 2016 15:41
[2016-10-21] MEDS: LORazepam 2 MG/ML VIAL IV PUSH PRN (19:02)
[2016-10-21] MEDS ORDERED: GADODIAMIDE PF 287 MG/ML 5 ML VIAL (for RAD MRI) IV PUSH ONE (19:20)
[2016-10-21] MEDS: levETIRAcetam 500 MG TAB PO SCH (20:19)
[2016-10-21] MEDS: PRAVASTATIN SOD 40 MG TAB PO SCH (20:19)
[2016-10-21] MEDS: MORPHINE SULFATE 4 MG/ML INJ IV PUSH PRN (20:56)
[2016-10-22 00:22] VITALS: BP 127/69; PULSE 74; RESP 18; TEMP 97.6; O2SAT 95
[2016-10-22] MEDS: MORPHINE SULFATE 4 MG/ML INJ IV PUSH PRN ×4 (02:38→20:21)
[2016-10-22 04:27] VITALS: BP 166/95; PULSE 83; RESP 18; TEMP 97.7; O2SAT 95
--- NOTE | 2016-10-22 05:42 | MB ---
cc: JENNIFER ALEX DATE OF CONSULTATION 10/31/2016 REASON FOR CONSULTATION History of stroke, benign tumor, recent headache and blurred vision. HISTORY OF PRESENT ILLNESS Ms. Benavidez is a 56-year-old -[place] female with past medical history of acute ischemic stroke in the right internal capsule with incidental finding of an extra-axial mass, possible meningioma in the brain stem adjacent to the hiral, chronic depression, chronic backache, who was admitted to [facility] the third week of September for evaluation of left-sided weakness and a fall. There was also a possibility of a seizure. MRI of the brain done at that time revealed extensive T2 hyperintensity throughout the brain stem and cerebral white matter characteristic of severe chronic ischemic white matter disease and there was a small focus of restricted diffusion in the right internal capsule, bianchi radiata had a 2.4 cm extra-axial mass causing moderate effacement of the hiral characteristic of a meningioma or cranial nerve schwannoma and there was a small focal hemosiderin deposit in the left mid-brain. An EEG at that time revealed minimal encephalopathy but no active seizures were reported. The patient was discharged on aspirin and prophylactic Keppra 500 mg twice daily and the meningioma was not a surgically operable lesion as per Neurosurgery and the patient did not do physical therapy because of lack of insurance. The patient was found to be positive for cocaine during that visit. The patient at this time comes back to the ER with blurred vision and she thinks she has had worsening of her weakness where she was not able to walk. Denies seizure activity, headache, slurred speech or pain. Head CT scan was reported with no acute findings but with an extra-axial posterior fossa mass with mild mass effect on the brain stem. The UDS was negative for any drugs. INR 1. WBC 4.8, hemoglobin 12.8. REVIEW OF SYSTEMS A 12-point review of systems is negative except for what is stated in the HPI. PAST MEDICAL HISTORY 1. Ischemic stroke right internal capsule with mild residual left-sided weakness. 2. Hypertension. 3. Polysubstance abuse. 4. Chronic pain. MEDICATIONS 1. Lisinopril. 2. Pravachol. 3. Keppra. 4. Flexeril. 5. Norvasc. ALLERGIES No known allergies. FAMILY HISTORY Noncontributory. PAST SURGICAL HISTORY Breast biopsy. Hysterectomy. SOCIAL HISTORY Occasional alcohol use, tobacco use and substance abuse. PHYSICAL EXAMINATION GENERAL: Awake, alert, oriented, good historian, not in apparent distress HEAD AND NECK EXAM: Atraumatic, normocephalic with a lipoma on the right cheek. Intact hearing and intact vision. Trachea midline. No carotid bruit. No signs of meningeal irritation. CARDIOVASCULAR: Regular rate and rhythm. No murmurs. RESPIRATORY: Clear to auscultation. No wheezes. GASTROINTESTINAL: Soft. Abdomen nontender. MUSCULOSKELETAL: Without clubbing or cyanosis. Moves extremities. NEUROLOGIC: Awake, alert, oriented to time, person and place. Mild slurred speech, residual. Intact external ocular motility. Pupils 3-mm bilateral, symmetrical. No facial asymmetry. No facial sensation abnormality. Grade 5- left shoulder abduction, elbow extension and wrist extension with give-way due to pain. Left lower extremity grade 4- left hip flexion, knee extension and foot dorsiflexion, otherwise 5/5 right upper and lower extremity. Reflexes 1+ bilateral, symmetrical. Plantars bilaterally downgoing. Sensation is intact. [id number] and [id number] are intact. PSYCHOLOGICAL: Intact mood and behavior. No delusions. LABORATORY DATA White blood cells 4.8, hemoglobin 12.8, platelets 165. Sodium 143, potassium 4.2 , anion gap 8, BUN 24, creatinine 0.96, AST 43, ALT 66. UDS negative. DIAGNOSTIC IMAGING STUDIES - Head CT scan with no acute findings. Extra-axial posterior fossa mass is noted with mild mass effect on the brain stem. DIAGNOSTIC IMPRESSION 1. History of stroke right ischemic internal capsule with mild residual left-sided weakness. 2. History of polysubstance abuse. 3. Hypertension. 4. Chronic pain. 5. Possible seizure. 6. Hypertension. PLAN 1. Neuro checks q. 4 hours. 2. MRI of brain. 3. PT/OT recommendations are appreciated. 4. DVT prophylaxis with SCDs. 5. Continue Keppra 500 mg twice daily home dose. 6. Aspirin 81 mg daily. 7. Continue home dose of pravastatin 40 mg nightly. 8. Telemetry. Thank you for the opportunity to participate in the care of your patient. Jennifer Alex MD RGO/JULIA /8:55 PM /5:23 AM JAMAR
--- NOTE | 2016-10-22 07:42 | HHI.PR ---
Subjective Remarks resting comfortably with no distress. has mild headache and blurred vision. d/w the RN. Objective Vitals Vital Signs Date Time Temp Pulse Resp B/P Pulse Ox O2 Delivery O2 Flow Rate FiO2 10/22/16 04:27 97.7 83 18 166/95 95 10/22/16 00:22 97.6 74 18 127/69 95 10/21/16 19:43 97.7 90 20 137/76 95 10/21/16 18:00 79 19 137/96 98 10/21/16 17:08 84 20 167/86 96 Room Air 10/21/16 15:18 98.0 80 16 158/86 99 Room Air 10/21/16 13:50 77 18 146/83 99 Room Air 10/21/16 11:07 88 20 100 Room Air 10/21/16 11:07 84 18 155/83 100 Room Air 10/21/16 10:57 97.9 96 17 132/98 98 Room Air Result Diagram: 10/21/16 1315 10/21/16 1145 Imaging Last Impressions Head CT 10/21/16 1124 Signed Impressions: Service Date/Time: Friday, October 21, 2016 11:50 - CONCLUSION: Extra-axial posterior fossa mass is noted as described above with mild mass effect on the brainstem. No acute findings. Chip Castellanos MD Objective Remarks GENERAL: This is a well-nourished, well-developed patient, in no apparent distress. CARDIOVASCULAR: Regular rate and regular rhythm without murmurs, gallops, or rubs. RESPIRATORY: Clear to auscultation. Breath sounds equal bilaterally. No wheezes , rales, or rhonchi. GASTROINTESTINAL: Abdomen soft, non-tender, nondistended. Normal, active bowel sounds MUSCULOSKELETAL: Extremities without clubbing, cyanosis, or edema. NEURO: Alert & Oriented x4 to person, place, time, situation. Moves all ext x4 Procedures none Medications and IVs Current Medications Sodium Chloride (NS Flush) 2 ml UNSCH PRN IVF FLUSH AFTER USING IV ACCESS; Start 10/21/16 at 11:30 Ondansetron HCl (Zofran Inj) 4 mg ONCE ONCE IV PUSH Last administered on t 12:07; Start 10/21/16 at 11:45; Stop 10/21/16 at 11:46; Status DC Morphine Sulfate (Morphine Inj) 4 mg ONCE ONCE IV PUSH Last administered on 12:07; Start 10/21/16 at 11:45; Stop 10/21/16 at 11:46; Status DC Lorazepam (Ativan Inj) 1 mg ONCE ONCE IV PUSH ; Start 10/21/16 at 15:30; Stop 10/21/16 at 15:31; Status DC Levetriacetam (Keppra) 500 mg Q12HR PO Last administered on 10/21/16 20:19; Start 10/21/16 at 21:00 Pravastatin Sodium (Pravachol) 40 mg HS PO Last administered on 10/21/16 20:19 ; Start 10/21/16 at 21:00 Lorazepam (Ativan Inj) 0.5 mg UNSCH X1 PRN IV PUSH BEFORE MRI IF NEEDED Last administered on 10/21/16 19:02; Start 10/21/16 at 15:45; Stop 10/22/16 at 15:44 Gadodiamide (Omniscan Pf Inj) 13 ml STK-MED ONCE IV PUSH Last administered on 19:20; Start 10/21/16 at 19:20; Stop 10/21/16 at 19:21; Status DC Morphine Sulfate (Morphine Inj) 2 mg Q3H PRN IV PUSH pain >5 Last administered on 10/22/16 02:38; Start 10/21/16 at 20:30 A/P Assessment and Plan A/P - recent CVA with extra-axial mass and mass effect continue with neuro-checks- MRI brain pending and consult neurology appreciated. of note the CT findings have been discussed with the neurosurgery and recommended neurology evaluation. continue keppra and statin-will resume aspirin- consulted PT -hypertension; resume home BP meds. -DVT prophylaxis with SCD's Discharge Planning dc planning - pending MRI and PT result. Ky Stewart MD Oct 22, 2016 07:42
[2016-10-22 08:07] VITALS: BP 149/84; PULSE 84; RESP 16; TEMP 97.6; O2SAT 95
[2016-10-22] MEDS: ASPIRIN 81 MG CHEW TAB CHEW SCH (08:33)
[2016-10-22] MEDS: levETIRAcetam 500 MG TAB PO SCH ×2 (08:33→20:21)
[2016-10-22] MEDS: LISINOPRIL 10 MG TAB PO SCH (08:33)
[2016-10-22] MEDS: LORazepam 2 MG/ML VIAL IV PUSH PRN (09:11)
[2016-10-22] MEDS ORDERED: GADODIAMIDE PF 287 MG/ML 5 ML VIAL (for RAD MRI) IV ONE (09:35)
--- NOTE | 2016-10-22 10:17 | RADRPT ---
EXAM DATE/TIME: 10/21/2016 19:07 [facility] COMPARISON: CT BRAIN W/O CONTRAST, October 21, 2016, 11:50. MRA BRAIN W/O CONTRAST, September 27, 2016, 13:50. MRI BR AIN W & W/O CONTRAST, September 26, 2016, 16:07. INDICATIONS : CVA. Dizziness, headache and weakness. CONTRAST: 13 cc Omniscan (gadodiamide) IV MEDICAL HISTORY : Hepatitis C. Stroke SURGICAL HISTORY : Hysterectomy. Breast biopsy. ENCOUNTER: Subsequent ACUITY: 3 day PAIN SCORE: 6/10 LOCATION: Head. TECHNIQUE: Multiplanar, multisequence MRI of the brain was performed both prior to and following the administrat ion of paramagnetic contrast. FINDINGS: Diffusion weighted images demonstrate a tiny focus of restricted diffusion in the right thalamus. The re is also a focus of restricted diffusion in the left parietal white matter on axial image 42. A the re is moderate patchy and confluent increased T2 signal in the bilateral centrum semiovale and perive ntricular white matter and multiple remote lacunar infarcts in the basal ganglia, thalami consistent with chronic microvascular ischemic disease. There is an extra-axial mass in the posterior fossa on t he right with mass effect on the hiral, and this is not significantly changed. There is avid enhanceme nt following contrast administration. This is dural based. On axial image #9 this measures 2.4 x 1.2 cm in transverse and AP dimension. The punctate focus of blooming artifact in the left is again seen. No signs of acute hemorrhage. CONCLUSION: 1. There are 2 foci of acute infarction in the right thalamus, and left parietal white matter. 2. Stable posterior fossa extra-axial mass. 3. Extensive white matter disease. Chip Castellanos MD on October 22, 2016 at 10:11 Board Certified Radiologist. This report was verified electronically.
--- NOTE | 2016-10-22 11:51 | EKG ---
Date Performed: 10/21/2016 Time Performed: 12:11:20 PTAGE: 56 years EKG: Sinus rhythm POSSIBLE RIGHT ATRIAL ENLARGEMENT LEFT ATRIAL ENLARGEMENT SEPTAL MYOCARDIAL INFARCTION ABNORMAL ECG PREVIOUS TRACING : 09/26/2016 12.36 DOCTOR: Olvin Back Interpretating Date/Time 10/22/2016 11:45:25
--- NOTE | 2016-10-22 12:08 | RADRPT ---
EXAM DATE/TIME: 10/22/2016 11:26 [facility] COMPARISON: No previous studies available for comparison. INDICATIONS : CVA. MEDICAL HISTORY : Stroke. Hypertension. Methicillin-resistant Staphylococcus aureus. Blurred vision. Dental problems. C hronic back pain. Substance abuse. Arthritis. Depression. Blood transfusion. Tobacco use. Right sided weakness. SURGICAL HISTORY : Hysterectomy. Breast biopsy. ENCOUNTER: Initial ACUITY: 1 day PAIN SCORE: 0/10 LOCATION: Bilateral neck PEAK SYSTOLIC VELOCITIES (cm/sec): ICA/CCA RATIO: Right: 0.7 Left: 0.7 ICA: Right: 68 Left: 72 CCA: Right: 98 Left: 97 ECA: Right: 143 Left: 113 VERTEBRAL: Right: 54 antegrade Left: 65 antegrade Elevated flow velocities and ICA/CCA ratios have been found to correlate with increased degrees of vessel stenosis, calculated as percentage of diameter relative to a normal segment of distal ICA/CCA FINDINGS: RIGHT CAROTID: No significant stenosis is visualized. The waveforms are within normal limits. LEFT CAROTID: No significant stenosis is visualized. The waveforms are within normal limits. VERTEBRAL ARTERIES: Antegrade flow is seen in both vertebral arteries. MISCELLANEOUS: None. CONCLUSION: 1. There is no evidence for hemodynamically significant stenosis. Chip Castellanos MD on October 22, 2016 at 12:06 Board Certified Radiologist. This report was verified electronically.
[2016-10-22 15:00] VITALS: PULSE 84
[2016-10-22 15:47] VITALS: BP 134/77; PULSE 89; RESP 16; TEMP 97.4; O2SAT 96
[2016-10-22 19:31] VITALS: BP 122/71; PULSE 94; RESP 20; TEMP 97.9; O2SAT 98
[2016-10-22] MEDS: PRAVASTATIN SOD 40 MG TAB PO SCH (20:20)
--- NOTE | 2016-10-22 20:26 | HHI.PR ---
Review/Management Diagnosis 1. Acute ischemic stroke, right thalamic and left parital infarcts 2. History of stroke right ischemic internal capsule with mild residual left- sided weakness. 3. History of polysubstance abuse. 4. Hypertension. 5. Chronic pain. 6. Possible seizure. 7. CADASIL: A review of MRI revealed a picture, a differential diagnosis may include CADASIL with a history of chronic headache, positive history of stroke/ multiple strokes, and the appearance of the white matter on the MRI may indicate this disease disorder; however, genetic tests/ NOTCH 3 is usually needed to confirm a suspected clinical and radiologic diagnosis. Plan - Neuro checks q. 4 hours. - PT/OT recommendations are appreciated. - DVT prophylaxis with SCDs. - Continue Keppra 500 mg twice daily home dose. - Aspirin 81 mg daily. - Continue home dose of pravastatin 40 mg nightly. - Telemetry. - Patient needs rehabilitation, and placement - Please call for questions Diagnosis/Plan: Subjective Subjective Comments No acute events reported Patient states that headache and double vision had subsided Complains of tingling over the left side, face UE&LE. MRI brain revealed a new right thalamic and left parietal acute infarct - A review of MRI revealed a picture, a differential diagnosis may include CADASIL with a history of chronic headache, positive history of stroke/multiple strokes, and the appearance of the white matter on the MRI may indicate this disease disorder - The extra-axial mass is not to for surgical intervention at this time as per neurosurgery CUS with no hemodynamically significant stenosis Active Medications Current Medications Medications (Trade) Dose Ordered Sig/Tracey Route Start Time Stop Time Status Last Admin (NS Flush) 2 ml UNSCH PRN IVF 10/21/16 11:30 10/22/16 08:33 (Keppra) 500 mg Q12HR PO 10/21/16 21:00 10/22/16 08:33 (Pravachol) 40 mg HS PO 10/21/16 21:00 10/21/16 20:19 (Morphine Inj) 2 mg Q3H PRN IV PUSH 10/21/16 20:30 10/22/16 13:13 (Aspirin Chew) 81 mg DAILY CHEW 10/22/16 09:00 10/22/16 08:33 (Prinivil) 10 mg DAILY PO 10/22/16 09:00 10/22/16 08:33 (Norvasc) 10 mg DAILY PO 10/22/16 09:00 10/22/16 08:33 Allergies Allergies Coded Allergies No Known Allergies (Verified10/21/16) Exam I&O / VS Vital Signs Date Time Temp Pulse Resp B/P Pulse Ox O2 Delivery O2 Flow Rate FiO2 10/22/16 19:31 97.9 94 20 122/71 98 10/22/16 15:47 97.4 89 16 134/77 96 10/22/16 15:00 84 10/22/16 08:07 97.6 84 16 149/84 95 10/22/16 04:27 97.7 83 18 166/95 95 10/22/16 00:22 97.6 74 18 127/69 95 Exam Comments GENERAL: Awake, alert, oriented, good historian, not in apparent distress HEAD AND NECK EXAM: Atraumatic, normocephalic with a lipoma on the right cheek. Intact hearing and intact vision. Trachea midline. No carotid bruit. No signs of meningeal irritation. CARDIOVASCULAR: Regular rate and rhythm. No murmurs. RESPIRATORY: Clear to auscultation. No wheezes. GASTROINTESTINAL: Soft. Abdomen nontender. MUSCULOSKELETAL: Without clubbing or cyanosis. Moves extremities. NEUROLOGIC: Awake, alert, oriented to time, person and place. Subtle/improved slurred speech, residual. Intact external ocular motility. Pupils 3-mm bilateral, symmetrical. No facial asymmetry. No facial sensation abnormality. Grade 5- left shoulder abduction, elbow extension and wrist extension with give-way due to pain. Left lower extremity grade 4- left hip flexion, knee extension and foot dorsiflexion, otherwise 5/5 right upper and lower extremity. Reflexes 1+ bilateral, symmetrical. Plantars bilaterally downgoing. Sensation is intact. [id number] and ulsw-gq-enic are intact. PSYCHOLOGICAL: Intact mood and behavior. No delusions. Objective Radiology Results Last 72 hours Impressions Carotid Artery Ultrasound 10/22/16 0000 Signed Impressions: Service Date/Time: Saturday, October 22, 2016 11:26 - CONCLUSION: 1. There is no evidence for hemodynamically significant stenosis. Chip Castellanos MD Head CT 10/21/16 1124 Signed Impressions: Service Date/Time: Friday, October 21, 2016 11:50 - CONCLUSION: Extra-axial posterior fossa mass is noted as described above with mild mass effect on the brainstem. No acute findings. Chip Castellanos MD Brain MRI 10/21/16 0000 Signed Impressions: Service Date/Time: Friday, October 21, 2016 19:07 - CONCLUSION: 1. There are 2 foci of acute infarction in the right thalamus, and left parietal white matter. 2. Stable posterior fossa extra-axial mass. 3. Extensive white matter disease. Chip Castellanos MD Ossi,Jennifer العلي MD Oct 22, 2016 20:26
[2016-10-23 00:19] VITALS: BP 142/91; PULSE 87; RESP 18; TEMP 97.4; O2SAT 100
[2016-10-23 01:12] VITALS: PULSE 84
[2016-10-23] MEDS: MORPHINE SULFATE 4 MG/ML INJ IV PUSH PRN ×3 (01:22→11:02)
[2016-10-23 03:49] VITALS: BP 170/96; PULSE 84; RESP 20; TEMP 98; O2SAT 97
[2016-10-23 07:38] VITALS: BP 139/85; PULSE 81; RESP 16; TEMP 97.3; O2SAT 98
[2016-10-23] MEDS: ASPIRIN 81 MG CHEW TAB CHEW SCH (07:47)
[2016-10-23] MEDS: levETIRAcetam 500 MG TAB PO SCH (07:48)
[2016-10-23] MEDS: LISINOPRIL 10 MG TAB PO SCH (07:48)
[2016-10-23] MEDS ORDERED: ASPI81TA11 PO (08:17)
--- NOTE | 2016-10-23 08:17 | HHI.PR ---
Subjective Remarks resting comfortably with no distress. has on and off slight headache. complaining of constipation. d/w the RN and no acute issues over night. Objective Vitals Vital Signs Date Time Temp Pulse Resp B/P Pulse Ox O2 Delivery O2 Flow Rate FiO2 10/23/16 07:38 97.3 81 16 139/85 98 10/23/16 03:49 98.0 84 20 170/96 97 10/23/16 01:12 84 10/23/16 00:19 97.4 87 18 142/91 100 10/22/16 19:31 97.9 94 20 122/71 98 10/22/16 15:47 97.4 89 16 134/77 96 10/22/16 15:00 84 Result Diagram: 10/21/16 1315 10/21/16 1145 Imaging Last Impressions Carotid Artery Ultrasound 10/22/16 0000 Signed Impressions: Service Date/Time: Saturday, October 22, 2016 11:26 - CONCLUSION: 1. There is no evidence for hemodynamically significant stenosis. Chip Castellanos MD Head CT 10/21/16 1124 Signed Impressions: Service Date/Time: Friday, October 21, 2016 11:50 - CONCLUSION: Extra-axial posterior fossa mass is noted as described above with mild mass effect on the brainstem. No acute findings. Chip Castellanos MD Brain MRI 10/21/16 0000 Signed Impressions: Service Date/Time: Friday, October 21, 2016 19:07 - CONCLUSION: 1. There are 2 foci of acute infarction in the right thalamus, and left parietal white matter. 2. Stable posterior fossa extra-axial mass. 3. Extensive white matter disease. Chip Castellaons MD Objective Remarks GENERAL: This is a well-nourished, well-developed patient, in no apparent distress. CARDIOVASCULAR: Regular rate and regular rhythm without murmurs, gallops, or rubs. RESPIRATORY: Clear to auscultation. Breath sounds equal bilaterally. No wheezes , rales, or rhonchi. GASTROINTESTINAL: Abdomen soft, non-tender, nondistended. Normal, active bowel sounds MUSCULOSKELETAL: Extremities without clubbing, cyanosis, or edema. NEURO: Alert & Oriented x4 to person, place, time, situation. Moves all ext x4 Procedures none Medications and IVs Current Medications Sodium Chloride (NS Flush) 2 ml UNSCH PRN IVF FLUSH AFTER USING IV ACCESS Last administered on 10/22/16 08:33; Start 10/21/16 at 11:30 Ondansetron HCl (Zofran Inj) 4 mg ONCE ONCE IV PUSH Last administered on 12:07; Start 10/21/16 at 11:45; Stop 10/21/16 at 11:46; Status DC Morphine Sulfate (Morphine Inj) 4 mg ONCE ONCE IV PUSH Last administered on 12:07; Start 10/21/16 at 11:45; Stop 10/21/16 at 11:46; Status DC Lorazepam (Ativan Inj) 1 mg ONCE ONCE IV PUSH ; Start 10/21/16 at 15:30; Stop 10/21/16 at 15:31; Status DC Levetriacetam (Keppra) 500 mg Q12HR PO Last administered on 10/23/16 07:48; Start 10/21/16 at 21:00 Pravastatin Sodium (Pravachol) 40 mg HS PO Last administered on 10/22/16 20:20 ; Start 10/21/16 at 21:00 Lorazepam (Ativan Inj) 0.5 mg UNSCH X1 PRN IV PUSH BEFORE MRI IF NEEDED Last administered on 10/22/16 09:11; Start 10/21/16 at 15:45; Stop 10/22/16 at 15:44 ; Status DC Gadodiamide (Omniscan Pf Inj) 13 ml STK-MED ONCE IV PUSH Last administered on 19:20; Start 10/21/16 at 19:20; Stop 10/21/16 at 19:21; Status DC Morphine Sulfate (Morphine Inj) 2 mg Q3H PRN IV PUSH pain >5 Last administered on 10/23/16 07:48; Start 10/21/16 at 20:30 Aspirin (Aspirin Chew) 81 mg DAILY CHEW Last administered on 10/23/16 07:47; Start 10/22/16 at 09:00 Lisinopril (Prinivil) 10 mg DAILY PO Last administered on 10/23/16 07:48; Start 10/22/16 at 09:00 Amlodipine Besylate (Norvasc) 10 mg DAILY PO Last administered on 10/23/16 07: 47; Start 10/22/16 at 09:00 Gadodiamide (Omniscan Pf Inj) 13 ml STK-MED ONCE IV Last administered on 09:35; Start 10/22/16 at 09:35; Stop 10/22/16 at 09:36; Status DC A/P Assessment and Plan A/P - acute CVA with extra-axial mass and mass effect MRI brain with 2 foci of acute infarction in the right thalamus, and left parietal white matter, stable posterior fossa extra-axial mass and extensive white matter disease. neurology follow-up appreciated and recommended aspirin and statin. of note the CT findings have been discussed with the neurosurgery and recommended neurology evaluation. continue keppra . PT consulted. -hypertension; resumed home BP meds. -DVT prophylaxis with SCD's Discharge Planning likely dc home later today if stable with PT. case management note reviewed. see med list. f/u with pcp and neurology. d/w the patient and RN. Ky Stewart MD Oct 23, 2016 08:17
--- NOTE | 2016-10-23 08:19 | HHI.DCPOC ---
Discharge Care Plan Diagnosis: (1) CVA (cerebral vascular accident) Your Health Problems Are: Difficulty with ADL Loss of Movements Goals to Promote Your Health * To prevent worsening of your condition and complications * To maintain your health at the optimal level Directions to Meet Your Goals Take your medications as prescribed Follow your dietary instruction Follow activity as directed Keep your appointments as scheduled Take your immunizations and boosters as scheduled If your symptoms worsen call your PCP, if no PCP go to Urgent Care Center or Emergency Room Smoking is Dangerous to Your Health. Avoid second hand smoke Call the 24-hour hour crisis hotline for domestic abuse at Ky Stewart MD Oct 23, 2016 08:19
--- NOTE | 2016-10-23 08:20 | HHI.DS ---
Discharge Summary Admission Date Oct 21, 2016 at 15:26 Discharge Date: Oct 23, 2016 Admitting Diagnosis neurological symptoms (1) Brain mass ICD Code: G93.9 Diagnosis: Principal Procedures none Brief History - From Admission patient is a 56 y/o female with recent CVA who presented back to ER with blurred vision. she says that this morning when she woke up she started to have worsening weakness to the extent that she wasn't able to walk. she's also complaining of blurred vision and frontal headache.there's no definite report of slurred speech.she denies any chest pain or sob. CBC/BMP: 10/21/16 1315 10/21/16 1145 Significant Findings Laboratory Tests Test 10/21/16 10/21/16 10/21/16 11:45 12:20 13:15 Blood Urea Nitrogen 24 MG/DL (7-18) Estimat Glomerular Filtration 72 ML/MIN (>89) Rate Aspartate Amino Transf 43 U/L (15-37) (AST/SGOT) Alanine Aminotransferase 66 U/L (10-53) (ALT/SGPT) Troponin I LESS THAN 0.02 NG/ML (0.02-0.05) Urine Mucus FEW /lpf (OCC) Monocytes (%) (Auto) 13.2 % (0.0-8.0) Activated Partial 32.0 SEC Thromboplast Time (24.3-30.1) Imaging Last Impressions Carotid Artery Ultrasound 10/22/16 0000 Signed Impressions: Service Date/Time: Saturday, October 22, 2016 11:26 - CONCLUSION: 1. There is no evidence for hemodynamically significant stenosis. Chip Castellanos MD Head CT 10/21/16 1124 Signed Impressions: Service Date/Time: Friday, October 21, 2016 11:50 - CONCLUSION: Extra-axial posterior fossa mass is noted as described above with mild mass effect on the brainstem. No acute findings. Chip Castellanos MD Brain MRI 10/21/16 0000 Signed Impressions: Service Date/Time: Friday, October 21, 2016 19:07 - CONCLUSION: 1. There are 2 foci of acute infarction in the right thalamus, and left parietal white matter. 2. Stable posterior fossa extra-axial mass. 3. Extensive white matter disease. Chip Castellanos MD PE at Discharge GENERAL: This is a well-nourished, well-developed patient, in no apparent distress. CARDIOVASCULAR: Regular rate and regular rhythm without murmurs, gallops, or rubs. RESPIRATORY: Clear to auscultation. Breath sounds equal bilaterally. No wheezes , rales, or rhonchi. GASTROINTESTINAL: Abdomen soft, non-tender, nondistended. Normal, active bowel sounds MUSCULOSKELETAL: Extremities without clubbing, cyanosis, or edema. NEURO: Alert & Oriented x4 to person, place, time, situation. Moves all ext x4 Hospital Course - acute CVA with extra-axial mass and mass effect MRI brain with 2 foci of acute infarction in the right thalamus, and left parietal white matter, stable posterior fossa extra-axial mass and extensive white matter disease. carotid doppler with no significant stenosis. neurology follow-up appreciated and recommended aspirin and statin. of note the CT findings have been discussed with the neurosurgery and recommended neurology evaluation. continue keppra . PT consulted. -hypertension; resumed home BP meds. -DVT prophylaxis with SCD's Pt Condition on Discharge: Fair Discharge Disposition: Discharge Home Discharge Time: <= 30 minutes Discharge Instructions DIET: Follow Instructions for: Heart Healthy Diet Speech Therapy-Diet Recommends: Regular Activities you can perform: Regular-No Restrictions Follow up Referrals: Neurology PCP Follow-up New Medications: Aspirin DR (Aspirin EC) 81 Mg Tabdr 81 MG PO DAILY cva Days 30 Ref 0 TAB Continued Medications: Amlodipine (Norvasc) 10 Mg Tab 10 MG PO DAILY Hypertension #30 Ref 3 TAB Cyclobenzaprine (Flexeril) 10 Mg Tab 5 MG PO Q8HR muscle spasm #21 Ref 1 TAB Levetiracetam (Keppra) 500 Mg Tab 500 MG PO Q12HR Seizure Control #60 Ref 3 TAB Lisinopril (Lisinopril) 10 Mg Tab 10 MG PO DAILY #30 Ref 3 TAB Pravastatin (Pravachol) 40 Mg Tab 40 MG PO HS Stroke Prevention #30 Ref 3 TAB Ky Stewart MD Oct 23, 2016 08:19
[2016-10-23] MEDS ORDERED: WHEEMIS3 (08:24)
[2016-10-23] MEDS ORDERED: MAGNESIUM HYDROXIDE SUSP 30 ML CUP PO ONE (08:45)
[2016-10-23 11:31] VITALS: BP 121/71; PULSE 96; RESP 16; TEMP 98.2; O2SAT 98
== END 2016-10-23 13:42 | disposition home or self-care (01) ==
LOC: NEPC 10:53 → NEDA 15:26 → NEPFCDU 17:28
PROVIDERS: ADMIT Internal Medicine; ATTEND Internal Medicine
DX: I63.9 Cerebral infarction, unspecified (principal); I69.954 Hemiplegia and hemiparesis following unspecified cerebrovascular disease affecting left non-dominant side; G93.9 Disorder of brain, unspecified; I10 Essential (primary) hypertension; F17.210 Nicotine dependence, cigarettes, uncomplicated; G89.29 Other chronic pain; M54.9 Dorsalgia, unspecified; F32.9 Major depressive disorder, single episode, unspecified; B19.20 Unspecified viral hepatitis C without hepatic coma; M19.90 Unspecified osteoarthritis, unspecified site
CPT/HCPCS: 70450; 70553; 76937; 80053; 80307; 81001; 82550; 84484; 85025; 85610; 85730; 92526; 92610; 93005; 93880; 96374; 96375; 97116; 97163; 97167; 99285; A9579; G0378; G8987; G8988; G8996; G8997; G8998; J2060; J2270; J2405